=== PATIENT | female | born 1955 | race African-American/Black ===

== ENCOUNTER 2022-05-01 18:48 | Emergency (ER) | payer OTHER ==
--- OUTSIDE RECORDS SUMMARY | 2022-05-01 18:54 | XMS REPORT | Continuity of Care Document ---
:[address] [facility] t Address [address] [place] [address] Care Team Providers Name Role Phone STEPHANE IRBY Attending Clinician Unavailable Eren Attending Clinician Unavailable MAEGAN JASON Attending Clinician Unavailable JOSE CARBAJAL Attending Clinician Unavailable TASH CASTLE Attending Clinician Unavailable AMY SALEH Attending Clinician Unavailable KRISTINA PARSONS Attending Clinician Unavailable CHELO Attending Clinician Unavailable IHDE_G Attending Clinician Unavailable SHERI BROUSSARD Attending Clinician Unavailable JOSE DACOSTA Attending Clinician Unavailable ELIZABETH SANTOS Attending Clinician Unavailable JAVIER PATEL Attending Clinician Unavailable IRIS HART Attending Clinician Unavailable AZAEL DONALD Attending Clinician Unavailable TRUNG COELHO Attending Clinician Unavailable RAYO REYNOLDS Attending Clinician Unavailable TERRIE HERNDON Attending Clinician Unavailable CHRISTIAN HAYS Attending Clinician Unavailable MALCOLM RINCON Attending Clinician Unavailable DEJA GONZALES Attending Clinician Unavailable ROXANNE JOHN Attending Clinician Unavailable JULI COPPOLA Attending Clinician Unavailable BRAIN BISWAS Attending Clinician Unavailable JOEY GONZALES Attending Clinician Unavailable VICTOR HUGO BILLINGS Attending Clinician Unavailable SAUD GOODE Attending Clinician Unavailable RETA SHEEHAN Attending Clinician Unavailable RACHEL ALEX Attending Clinician Unavailable JOVITA MERINO Attending Clinician Unavailable SHUN LINK Attending Clinician Unavailable TRUNG GRAY Attending Clinician Unavailable KIMBERLY RUBIO Attending Clinician Unavailable BENTLEY STRONG Attending Clinician Unavailable BILLIE DENNIS Attending Clinician Unavailable Eren Admitting Clinician Unavailable CHELO Admitting Clinician Unavailable IHDE_G Admitting Clinician Unavailable SHUN LINK Admitting Clinician Unavailable KIMBERLY RUBIO Admitting Clinician Unavailable Payers Payer Name Policy Type Policy Number Effective Date Expiration Date Samir barroso [facility] [id number] 2017 [facility] - 00:00:00 STAR+PLUS (MEDICAID REPLACEMENT - HMO) [facility] [id number] 2017 [facility] [place] - 00:00:00 STAR PROGRAM (MEDICAID HMO) Problems Condition Condition Condition Status Onset Resolution Last Treating Co mments Source Name Details Category Date Date Treatment Clinician Date 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 2-19 da mellitus Mellitus 00:00: Medica l without without 00 Group complicati Complicati on on Hyperlipid Hyperlipid Problem Active 2016-07 [facility] emia emia 2-19 da 00:00: Medical 00 Group Essential Essential Problem Active 2016-07 [facility] hypertensi Hypertensi 2-19 da on on 00:00: Medical 00 Group Allergies, Adverse Reactions, Alerts Allergy Allergy Status Severity Reaction(s) Onset Inactive Treating Comm ents Source Name Type Date Date Clinician [place] Allergy Active 2010-07 [facility]: Medical e 00 Group [place] Allergy Active Rash [facility] to [facility] e Group Social History Smoking Status Start Date Stop Date Source Former Smoker [facility] Medications Ordered Filled Start Stop Current Ordering Indication Dosage Frequency Signature Comments Components Source Medication Medication Date Date Medication? Clinician (SIG) Name Name Aspir- No [place] one a day one a day one a day [facility] lisinopril lisinopril No lisinopril [place] 10 mg 10 mg 10 mg da tablet TAKE tablet TAKE tablet Medical ONE (1) ONE (1) TAKE ONE Group TABLET(S) TABLET(S) (1) BY MOUTH IN BY MOUTH IN TABLET(S) THE THE BY MOUTH MORNING. MORNING. IN THE MORNING. meloxicam meloxicam No meloxicam [facility] 15 mg 15 mg 15 mg da tablet TAKE tablet TAKE tablet Medical ONE (1) ONE (1) TAKE ONE Group TABLET BY TABLET BY (1) TABLET MOUTH EVERY MOUTH EVERY BY MOUTH DAY. DAY. EVERY DAY. metformin metformin No metformin [place] 500 mg 500 mg 500 mg da tablet TAKE tablet TAKE tablet Medical ONE (1) ONE (1) TAKE ONE Group TABLET(S) TABLET(S) (1) BY MOUTH BY MOUTH TABLET(S) ONCE A DAY. ONCE A DAY. BY MOUTH ONCE A DAY. metoprolol metoprolol No metoprolol [place] tartrate 50 tartrate 50 tartrate da mg tablet mg tablet 50 mg Medi nitish TAKE ONE TAKE ONE tablet Group (1) (1) TAKE ONE TABLET(S) TABLET(S) (1) BY MOUTH BY MOUTH TABLET(S) TWICE A TWICE A BY MOUTH DAY. DAY. TWICE A DAY. simvastatin simvastatin No simvastati [place] 20 mg 20 mg n 20 mg da tablet TAKE tablet TAKE tablet Medical ONE (1) ONE (1) TAKE ONE Group TABLET(S) TABLET(S) (1) BY MOUTH BY MOUTH TABLET(S) ONCE A DAY. ONCE A DAY. BY MOUTH ONCE A DAY. Voltaren Voltaren No Voltaren [facility] Arthritis Arthritis Arthritis da Pain 1 % Pain 1 % Pain 1 % Med ical topical gel topical gel topical Group APPLY 2 APPLY 2 gel APPLY GRAMS TO GRAMS TO 2 GRAMS TO THE THE THE AFFECTED AFFECTED AFFECTED AREA(S) BY AREA(S) BY AREA(S) BY TOPICAL TOPICAL TOPICAL ROUTE 4 ROUTE 4 ROUTE 4 TIMES PER TIMES PER TIMES PER DAY DAY DAY Aspir-81 Aspir-81 No Aspir-81 [place] one a day one a day one a day [facility] lisinopril lisinopril No lisinopril [place] 10 mg 10 mg 10 mg da tablet TAKE tablet TAKE tablet Medical ONE (1) ONE (1) TAKE ONE Group TABLET(S) TABLET(S) (1) BY MOUTH IN BY MOUTH IN TABLET(S) THE THE BY MOUTH MORNING. MORNING. IN THE MORNING. meloxicam meloxicam No meloxicam [facility] 15 mg 15 mg 15 mg da tablet TAKE tablet TAKE tablet Medical ONE (1) ONE (1) TAKE ONE Group TABLET BY TABLET BY (1) TABLET MOUTH EVERY MOUTH EVERY BY MOUTH DAY. DAY. EVERY DAY. metformin metformin No metformin [place] 500 mg 500 mg 500 mg da tablet TAKE tablet TAKE tablet Medical ONE (1) ONE (1) TAKE ONE Group TABLET(S) TABLET(S) (1) BY MOUTH BY MOUTH TABLET(S) ONCE A DAY. ONCE A DAY. BY MOUTH ONCE A DAY. metoprolol metoprolol No metoprolol [facility] tartrate 50 tartrate 50 tartrate da mg tablet mg tablet 50 mg Medi nitish TAKE ONE TAKE ONE tablet Group (1) (1) TAKE ONE TABLET(S) TABLET(S) (1) BY MOUTH BY MOUTH TABLET(S) TWICE A TWICE A BY MOUTH DAY. DAY. TWICE A DAY. sertraline sertraline No sertraline [place] 25 mg 25 mg 25 mg da tablet TAKE tablet TAKE tablet Medical ONE (1) ONE (1) TAKE ONE Group TABLET BY TABLET BY (1) TABLET MOUTH DAILY MOUTH DAILY BY MOUTH DAILY simvastatin simvastatin No simvastati [place] 20 mg 20 mg n 20 mg da tablet TAKE tablet TAKE tablet Medical ONE (1) ONE (1) TAKE ONE Group TABLET(S) TABLET(S) (1) BY MOUTH BY MOUTH TABLET(S) ONCE A DAY. ONCE A DAY. BY MOUTH ONCE A DAY. Immunizations Ordered Immunization Filled Immunization Date Status Commen ts Source Name Name influenza, influenza, 2018-05-09 Completed [facility] unspecified unspecified 00:00:00 Medical Grou p formulation formulation influenza, influenza, 2018-05-09 Completed [facility] unspecified unspecified 00:00:00 Medical Grou p formulation formulation pneumococcal pneumococcal 2017-06-26 Completed [facility] polysaccharide PPV23 polysaccharide PPV23 12:44:00 Medical Group pneumococcal pneumococcal 2017-06-26 Completed [facility] polysaccharide PPV23 polysaccharide PPV23 12:44:00 Medical Group influenza, influenza, 2017-06-26 Completed [facility] injectable, injectable, 12:42:00 Medical Grou p quadrivalent quadrivalent influenza, influenza, 2017-06-26 Completed [facility] injectable, injectable, 12:42:00 Medical Grou p quadrivalent quadrivalent Vital Signs Vital Name Observation Time Observation Value Comments Source BP Diastolic 2022-03-09 00:00:00 85 mm[Hg] [facility] Height 2022-03-09 00:00:00 62.1 [in_i] [facility] BMI (Body Mass 2022-03-09 00:00:00 30.8 kg/m2 [facility] Medical Index) Group BP Systolic 2022-03-09 00:00:00 148 mm[Hg] [facility] Body Weight 2022-03-09 00:00:00 2704 [oz_av] [facility] BP Diastolic 2021-10-20 00:00:00 83 mm[Hg] [facility] Height 2021-10-20 00:00:00 62.1 [in_i] [facility] BMI (Body Mass 2021-10-20 00:00:00 32.1 kg/m2 [facility] Medical Index) Group BP Systolic 2021-10-20 00:00:00 157 mm[Hg] [facility] Body Weight 2021-10-20 00:00:00 2816 [oz_av] [facility] BP Diastolic 2021-08-22 00:00:00 80 mm[Hg] [facility] Height 2021-08-22 00:00:00 62.1 [in_i] [facility] BMI (Body Mass 2021-08-22 00:00:00 32.5 kg/m2 [facility] Medical Index) Group BP Systolic 2021-08-22 00:00:00 135 mm[Hg] [facility] Body Weight 2021-08-22 00:00:00 2848 [oz_av] [facility] BP Diastolic 2021-04-19 00:00:00 86 mm[Hg] [facility] Height 2021-04-19 00:00:00 62.1 [in_i] [facility] BMI (Body Mass 2021-04-19 00:00:00 33.4 kg/m2 [facility] Medical Index) Group BP Systolic 2021-04-19 00:00:00 149 mm[Hg] [facility] Body Weight 2021-04-19 00:00:00 2928 [oz_av] [facility] BP Diastolic 2021-03-28 00:00:00 78 mm[Hg] [facility] Height 2021-03-28 00:00:00 62.5 [in_i] [facility] BMI (Body Mass 2021-03-28 00:00:00 33.2 kg/m2 [facility] Medical Index) Group BP Systolic 2021-03-28 00:00:00 137 mm[Hg] [facility] Body Weight 2021-03-28 00:00:00 2948 [oz_av] [facility] BP Diastolic 2021-02-01 00:00:00 72 mm[Hg] [facility] Height 2021-02-01 00:00:00 62.5 [in_i] [facility] BMI (Body Mass 2021-02-01 00:00:00 33.1 kg/m2 [facility] Medical Index) Group BP Systolic 2021-02-01 00:00:00 114 mm[Hg] [facility] Body Weight 2021-02-01 00:00:00 2944 [oz_av] [facility] BP Diastolic 2020-12-02 00:00:00 76 mm[Hg] [facility] Height 2020-12-02 00:00:00 62.5 [in_i] [facility] BMI (Body Mass 2020-12-02 00:00:00 32.9 kg/m2 [facility] Medical Index) Group BP Systolic 2020-12-02 00:00:00 129 mm[Hg] [facility] Body Weight 2020-12-02 00:00:00 2928 [oz_av] [facility] BP Diastolic 2020-10-13 00:00:00 78 mm[Hg] [facility] Height 2020-10-13 00:00:00 62.5 [in_i] [facility] BMI (Body Mass 2020-10-13 00:00:00 33.8 kg/m2 [facility] Medical Index) Group BP Systolic 2020-10-13 00:00:00 130 mm[Hg] [facility] Body Weight 2020-10-13 00:00:00 3008 [oz_av] [facility] BP Diastolic 2020-08-09 00:00:00 73 mm[Hg] [facility] Height 2020-08-09 00:00:00 62.5 [in_i] [facility] BMI (Body Mass 2020-08-09 00:00:00 34.4 kg/m2 [facility] Medical Index) Group BP Systolic 2020-08-09 00:00:00 117 mm[Hg] [facility] Body Weight 2020-08-09 00:00:00 3056 [oz_av] [facility] BP Diastolic 2020-07-07 00:00:00 59 mm[Hg] [facility] Height 2020-07-07 00:00:00 62.5 [in_i] [facility] BMI (Body Mass 2020-07-07 00:00:00 35.5 kg/m2 [facility] Medical Index) Group BP Systolic 2020-07-07 00:00:00 96 mm[Hg] [facility] Body Weight 2020-07-07 00:00:00 3152 [oz_av] [facility] BP Diastolic 2020-05-04 00:00:00 79 mm[Hg] [facility] Height 2020-05-04 00:00:00 62.5 [in_i] [facility] BMI (Body Mass 2020-05-04 00:00:00 35.5 kg/m2 [facility] BP Systolic 2020-05-04 00:00:00 141 mm[Hg] [facility] Body Weight 2020-05-04 00:00:00 3152 [oz_av] [facility] BP Diastolic 2020-04-07 00:00:00 68 mm[Hg] [facility] Height 2020-04-07 00:00:00 62.5 [in_i] [facility] BMI (Body Mass 2020-04-07 00:00:00 35.6 kg/m2 [facility] Group BP Systolic 2020-04-07 00:00:00 128 mm[Hg] [facility] Body Weight 2020-04-07 00:00:00 3168 [oz_av] [facility] BP Diastolic 2019-12-23 00:00:00 81 mm[Hg] [facility] Height 2019-12-23 00:00:00 62.5 [in_i] [facility] BMI (Body Mass 2019-12-23 00:00:00 [facility] BP Systolic 2019-12-23 00:00:00 152 mm[Hg] [facility] Body Weight 2019-12-23 00:00:00 3184 [oz_av] [facility] BP Diastolic 2019-09-09 00:00:00 61 mm[Hg] [facility] Height 2019-09-09 00:00:00 62.5 [in_i] [facility] BMI (Body Mass 2019-09-09 00:00:00 33[facility]8 [facility] BP Systolic 2019-09-09 00:00:00 116 mm[Hg] [facility] Body Weight 2019-09-09 00:00:00 188 [lb_av] [facility] BP Diastolic 2019-09-02 00:00:00 74 mm[Hg] [facility] Height 2019-09-02 00:00:00 62.5 [in_i] [facility] BMI (Body Mass 2019-09-02 00:00:00 33.8 kg/m2 [facility] BP Systolic 2019-09-02 00:00:00 112 mm[Hg] [facility] Body Weight 2019-09-02 00:00:00 188 [lb_av] [facility] BP Diastolic 2019-08-07 00:00:00 76 mm[Hg] [facility] Height 2019-08-07 00:00:00 62.5 [in_i] [facility] BMI (Body Mass 2019-08-07 00:00:00 33.8 kg/m2 [facility] BP Systolic 2019-08-07 00:00:00 110 mm[Hg] [facility] Body Weight 2019-08-07 00:00:00 188 [lb_av] [facility] BP Diastolic 2019-07-23 00:00:00 71 mm[Hg] [facility] Height 2019-07-23 00:00:00 62.5 [in_i] [facility] BMI (Body Mass 2019-07-23 00:00:00 33.8 kg/m2 [facility] BP Systolic 2019-07-23 00:00:00 107 mm[Hg] [facility] Body Weight 2019-07-23 00:00:00 3008 [oz_av] [facility] BP Diastolic 2019-06-02 00:00:00 74 mm[Hg] [facility] Height 2019-06-02 00:00:00 62.5 [in_i] [facility] BMI (Body Mass 2019-06-02 00:00:00 33.8 kg/m2 [facility] BP Systolic 2019-06-02 00:00:00 124 mm[Hg] [facility] Body Weight 2019-06-02 00:00:00 3008 [oz_av] [facility] BP Diastolic 2019-03-18 00:00:00 151 mm[Hg] [facility] Height 2019-03-18 00:00:00 62.5 [in_i] [facility] BMI (Body Mass 2019-03-18 00:00:00 33.9 kg/m2 [facility] BP Systolic 2019-03-18 00:00:00 168 mm[Hg] [facility] Body Weight 2019-03-18 00:00:00 3012 [oz_av] [facility] BP Diastolic 2019-01-07 00:00:00 77 mm[Hg] [facility] Height 2019-01-07 00:00:00 62.5 [in_i] [facility] BMI (Body Mass 2019-01-07 00:00:00 34.6 kg/m2 [facility] Medical Index) Group BP Systolic 2019-01-07 00:00:00 128 mm[Hg] [facility] Body Weight 2019-01-07 00:00:00 3072 [oz_av] [facility] BP Diastolic 2018-12-17 00:00:00 74 mm[Hg] [facility] Height 2018-12-17 00:00:00 62.5 [in_i] [facility] BMI (Body Mass 2018-12-17 00:00:00 34.9 kg/m2 [facility] Medical Index) Group BP Systolic 2018-12-17 00:00:00 116 mm[Hg] [facility] Body Weight 2018-12-17 00:00:00 3104 [oz_av] [facility] BP Diastolic 2018-10-31 00:00:00 79 mm[Hg] [facility] Height 2018-10-31 00:00:00 62.5 [in_i] [facility] BMI (Body Mass 2018-10-31 00:00:00 34.6 kg/m2 [facility] Medical Index) Group BP Systolic 2018-10-31 00:00:00 137 mm[Hg] [facility] Body Weight 2018-10-31 00:00:00 3072 [oz_av] [facility] BP Diastolic 2018-09-23 00:00:00 64 mm[Hg] [facility] Height 2018-09-23 00:00:00 62.5 [in_i] [facility] BMI (Body Mass 2018-09-23 00:00:00 36 kg/m2 [facility] BP Systolic 2018-09-23 00:00:00 109 mm[Hg] [facility] Body Weight 2018-09-23 00:00:00 3201.6 [oz_av] [facility] BP Diastolic 2018-06-27 00:00:00 62 mm[Hg] [facility] Height 2018-06-27 00:00:00 62.5 [in_i] [facility] BMI (Body Mass 2018-06-27 00:00:00 36.2 kg/m2 [facility] BP Systolic 2018-06-27 00:00:00 94 mm[Hg] [facility] Body Weight 2018-06-27 00:00:00 3216 [oz_av] [facility] Procedures Procedure Date / Time Performing Clinician Source Performed MAMMO, screening, digital, 2022-03-09 [facility] 2022-03-09 00:00:00 [facility] MAMMO, screening, digital, 2021-04-19 [facility] imaging order 2021-03-28 00:00:00 [facility] unlisted imaging order 2021-02-01 00:00:00 [facility] unlisted imaging order 2020-10-13 00:00:00 [facility] MAMMO, screening, digital, 2020-07-07 00:00:00 [facility] 2019[facility], screening, digital, 2019-07-23 00:00:00 [facility] unlisted imaging order 2018-12-17 00:00:00 [facility] Colonoscopy 2017-09-06 00:00:00 [facility] Hyste[facility] Cholecystectomy [facility] Plan of Care Planned Activity Planned Date Details Comments Source Diagnostic Test 2022-03-09 CBC w/ auto diff [facility] Pending 00:00:00 [code = CBC w/ auto Group diff] Diagnostic Test 2022-03-09 CMP, serum or [facility] Pending 00:00:00 plasma [code = CMP, Group serum or plasma] Diagnostic Test 2022-03-09 lipid panel, serum [facility] Pending 00:00:00 [code = lipid Group panel, serum] Diagnostic Test 2022-03-09 HbA1c (hemoglobin [facility] Pending 00:00:00 A1c), blood [code = Group HbA1c (hemoglobin A1c), blood] Diagnostic Test 2022-03-09 hepatitis C virus [facility] Pending 00:00:00 Ab, serum [code = Group hepatitis C virus Ab, serum] Diagnostic Test 2022-03-09 TSH, serum or [facility] Pending 00:00:00 plasma [code = TSH, Group serum or plasma] Diagnostic Test 2022-03-09 urinalysis [facility] Pending 00:00:00 complete, reflex Group culture [code = urinalysis complete, reflex culture] Instructions [facility] Encounters Start End Encounter Admission Attending Care Care Encounter Source Date/Time Date/Time Type Type Clinicians Facility Department ID 2022-04-22 2022-04-22 Emergency ER IRBY, [facility] [id number] [facility] 12:33:00 14:35:00 STEPHANE -[id number] [facility] 2022-04-21 2022-04-21 Outpatient Shield [facility] [id number] [place] 00:00:00 00:00:00 1014 [facility] 2022-03-09 2022-03-09 Outpatient EREN, [facility] [id number] [place] 10:52:00 10:52:00 MAEGAN -[id number] [facility] 2022-03-09 2022-03-09 [facility] [id number] [facility] 00:00:00 00:00:00 0901 [facility] 2022-03-09 2022-03-09 Maegan [facility] [place] - [id number] [facility] 00:00:00 00:00:00 Discovery crys Jason NIGHTCLUB MANAGER: [address] [facility] [place] - [address], [place] [address] , Ph. 2022-02-26 2022-02-27 Emergency ER CATANESCU, [facility] [id number] [place] 21:29:00 00:26:00 JOSE -[id number] [facility] 2021-10-20 2021-10-20 Outpatient RYLEE JASON, [facility] [id number] [place] 09:38:00 09:38:00 MAEGAN -[id number] [facility] 2021-10-20 2021-10-20 Maegan Eren [facility] [place] - [address] [facility] 00:00:00 00:00:00 Discovery Eren 0414 da NIGHTCLUB MANAGER: [address] [place], [place] [address]rda - [address], [place] [address] , Ph. 2021-08-22 2021-08-22 Maegan Jason [facility] [place] - [address] [facility] 00:00:00 00:00:00 Discovery Eren 0214 da NIGHTCLUB MANAGER: [address] [place] [address] [facility] - [address], [place] [address] , Ph. 2021-04-22 2021-04-22 Outpatient [facility] [id number] [place] 04:37:00 04:37:00 1015 da [facility] 2021-04-19 2021-04-19 Outpatient RYLEE JASON, [facility] [id number] [place] 11:46:00 11:46:00 MAEGAN -[id number] [facility] 2021-04-19 2021-04-19 Maegantiffany Jason [facility] [place] - [address] [facility] 00:00:00 00:00:00 Discovery Eren 1012 da NIGHTCLUB MANAGER: [address] [place], [place] [address] - [address], [facility] [place] [address] , Ph. 2021-03-28 2021-03-28 Outpatient RYLEE JASON [facility] [id number] [place] 11:54:00 11:54:00 MAEGAN -[id number] [facility] 2021-03-28 2021-03-28 Maegan Jason [facility] [place] [place] - [id number] [place] 00:00:00 00:00:00 Discovery Eren 0920 da NIGHTCLUB MANAGER: [address] [facility] [place] - [address], [place] [address] , Ph. 2021-02-01 2021-02-01 Outpatient RYLEE JASON [facility] [id number] [place] 09:40:00 09:40:00 MAEGAN -[id number] da [facility] 2021-02-01 2021-02-01 Maegan Jason [facility] [place] [place] - [address] [place] 00:00:00 00:00:00 Discovery Eren 0727 da NIGHTCLUB MANAGER: [address] [place] [address] [place] - [address], [place] [address] , Ph. 2020-12-02 2020-12-02 Maegan Jason [facility] [place] - [address] [facility] 00:00:00 00:00:00 Discovery Eren 0527 da NIGHTCLUB MANAGER: [address] [place] [address] [place] - [address], [facility] [place] [address] , Ph. 2020-10-25 2020-10-25 Outpatient RYLEE JASON [facility] [id number] [place] 14:04:00 14:04:00 MAEGAN -[id number] da [facility] 2020-10-22 2020-10-22 Outpatient Eren [facility] [id number] [place] 09:07:00 09:07:00 0416 crys [facility] 2020-10-13 2020-10-13 Outpatient RYLEE JASON [facility] [id number] [place] 10:34:00 10:34:00 MAEGAN -[id number] da [facility] 2020-10-13 2020-10-13 Maegan Jason [facility] [place] - [address] [place] 00:00:00 00:00:00 Discovery Eren 0407 da NIGHTCLUB MANAGER: [address] [place] [address] [place] - [address], [facility] [place] [address] , Ph. 2020-08-09 2020-08-09 Maegan Shield [place] [place] - [id number] [place] 00:00:00 00:00:00 Discovery Eren 0201 da NIGHTCLUB MANAGER: [address] [facility] [place] - [address], [facility], [place] [address] , Ph. 2020-07-07 2020-07-07 Outpatient EL EREN, [facility] [id number] [place] 12:14:00 12:14:00 MAEGAN -[id number] da [facility] 2020-07-07 2020-07-07 Maegan [place] - [address] [place] 00:00:00 00:00:00 Discovery Eren 1230 da NIGHTCLUB MANAGER: [address] [facility] [place] - [address], [place] [address] , Ph. 2020-07-04 2020-07-04 Emergency ER [facility], [facility] [id number] [place] 11:00:00 11:50:00 TASH -[id number] da [facility] 2020-05-26 2020-05-26 Outpatient Shield MMG MMG [id number] [place] 02:23:00 02:23:00 1118 [facility] 2020-05-18 2020-05-18 Outpatient Shield MMG MMG [id number] [place] 05:48:00 05:48:00 1110 [facility] 2020-05-04 2020-05-04 Maegan [place] - [id number] [place] 00:00:00 00:00:00 Discovery Eren 1027 da NIGHTCLUB MANAGER: [address] [facility] [place] - [address], [facility] [address] , Ph. 2020-04-18 2020-04-18 Emergency ER IRUKE, [facility] [id number] [place] 09:27:00 12:20:00 AMY -[id number] d a [facility] 2020-04-07 2020-04-07 Maegan Shield [place] - [address] [place] 00:00:00 00:00:00 ErenDiscovery 0930 da NIGHTCLUB MANAGER: [address] [facility] [place] [place] - [address], [facility], [facility] [place] [address] , Ph. 2020-03-18 2020-03-18 Emergency ER KRISTINA PARSONS [facility] [id number] [place] 08:03:00 10:19:00 -[id number] [facility] 2020-02-02 2020-02-02 Outpatient FERGUSON_JO MEHOP MEHOP 701 [place] 11:25:00 11:25:00 HN 0331 [facility] 2020-02-02 2020-02-02 Outpatient FERGUSON_JO MEHOP MEHOP 701 [place] 11:25:00 11:25:00 HN 0727 [facility] 2020-01-16 2020-01-16 Outpatient FERGUSON_JO MEHOP MEHOP 701 [place] 10:52:00 10:52:00 HN 0710 [facility] 2020-01-15 2020-01-15 Outpatient FERGUSON_JO MEHOP MEHOP 701 [place] 11:29:00 11:29:00 HN 0709 [facility] 2020-01-12 2020-01-12 Outpatient FERGUSON_JO MEHOP MEHOP 701 [place] 10:43:00 10:43:00 HN 0706 [facility] 2019-12-26 2019-12-26 Outpatient Shield [facility] [id number] [place] 11:25:00 11:25:00 0619 [facility] 2019-12-24 2019-12-24 Outpatient FERGUSON_JO MEHOP MEHOP 701 [place] 12:31:00 12:31:00 HN 0617 [facility] 2019-12-23 2019-12-23 Outpatient RYLEE JASON, [facility] [id number] [place] 13:49:00 13:49:00 MAEGAN -[id number] [facility] 2019-12-23 2019-12-23 Ma[place] I[place] - [phone] [place] 00:00:00 00:00:00 Discovery Eren 0616 da NIGHTCLUB MANAGER: [address] [facility] [address], [place] [address] , Ph. 2019-12-22 2019-12-22 Outpatient IHDE_G MMG MMG [id number] [place] 04:18:00 04:18:00 0615 [facility] 2019-12-17 2019-12-17 Outpatient FERGUSON_JO MEHOP MEHOP 701 [place] 02:41:00 02:41:00 HN 0610 [facility] 2019-12-16 2019-12-16 Outpatient FERGUSON_JO MEHOP MEHOP 701 [place] 09:08:00 09:08:00 HN 0609 [facility] 2019-12-15 2019-12-15 Outpatient FERGUSON_JO MEHOP MEHOP 701 [place] 03:26:00 03:26:00 HN 0608 [facility] 2019-10-01 2019-10-01 Outpatient IHDE_G MMG MMG [id number] [place] 02:59:00 02:59:00 0325 [facility] 2019-09-09 2019-09-09 [place] [address] [place] 00:00:00 00:00:00 Deja Chan 0303 crys Broussard MD: Jorge Alberto Medica shyanne [address] [place] [address] General [address], [place] [address] , Ph. [phone] 2019-09-03 2019-09-03 Outpatient IHDE_G MMG MMG [id number] [place] 02:53:00 02:53:00 0226 [facility] 2019-09-02 2019-09-02 Outpatient UR IHDE, SHERI [facility] [id number] [place] 10:39:00 10:39:00 -[id number] [facility] 2019-09-02 2019-09-02 [place]HDE_[place] - [id number] [place] 00:00:00 00:00:00 Deja Chan 0225 crys Broussard MD: Jorge Alberto kimble [address] [place] [address] 201, [place] [address] , Ph. [phone] 2019-08-27 2019-08-27 Outpatient SHERI GOMEZ [facility] [id number] [place] 09:00:00 09:00:00 -[id number] [facility] 2019-08-07 2019-08-07 She[place] IHDE_[place] - [id number] [place] 00:00:00 00:00:00 Deja Chan 0130 crys Broussard MD: Jorge Alberto Suttona shyanne [address] [place] [address] 201, [place] [address] , Ph. [phone] 2019-07-24 2019-07-24 [place] [id number] [place] 06:49:00 06:49:00 0116 [facility] 2019-07-23 2019-07-23 [place]egan [place] - [id number] [place] 00:00:00 00:00:00 Discovery Eren 0115 da NIGHTCLUB MANAGER: [address] [place] [address] [place] [address] , Ph. 2019-06-13 2019-06-13 Outpatient Shield MMG MMG [id number] [place] 12:17:00 12:17:00 1206 crys [facility] 2019-06-02 2019-06-02 [place] - [id number] [place] 00:00:00 00:00:00 Discovery Eren 1125 da NIGHTCLUB MANAGER: [address] [place] [address] [place] [address] , Ph. 2019-05-30 2019-05-30 Emergency ER GIANNONFredy, [facility] [id number] [place] 08:28:00 09:35:00 JOSE [id number] [facility] 2019-03-18 2019-03-18 Outpatient EL EREN, [facility] [id number] [place] 11:27:00 11:27:00 MAEGAN -[id number] crys [facility] 2019-03-18 2019-03-18 [place] - [id number] [place] 00:00:00 00:00:00 Discovery Eren 0910 da NIGHTCLUB MANAGER: [address] [facility] [place] [address], [place] [address] , Ph. 2019-01-07 2019-01-07 [place] - [address] [place] 00:00:00 00:00:00 Discovery Eren 0702 da NIGHTCLUB MANAGER: [address] [place] [address], [place] [address], [place] [address] , Ph. 2018-12-19 2018-12-19 Emergency ER TOM, [facility] [id number] [place] 20:51:00 22:26:00 ELIZABETH [id number] crys [facility] 2018-12-17 2018-12-17 [place] - [id number] [place] 00:00:00 00:00:00 Discovery Eren 0611 da NIGHTCLUB MANAGER: [address] [place] [address], [place] [address], [place] [address] , Ph. 2018-10-31 2018-10-31 [place] - [id number] [place] 00:00:00 00:00:00 Discovery Eren 0425 da NIGHTCLUB MANAGER: [address] [place] [address], [place] - [address], [place] [address] , Ph. 2018-10-30 2018-10-30 Emergency ER GIANNONFredy, [facility] [id number] [place] 08:23:00 10:08:00 JOSE -[id number] da [facility] 2018-09-30 2018-09-30 Emergency ER IRUKE, [facility] [id number] [place] 13:08:00 17:45:[address] [id number] d a [facility] 2018-09-23 2018-09-23 [place] MIGUEL ÁNGEL [place] - [address] [place] 00:00:00 00:00:00 Discovery Eren 0318 da NIGHTCLUB MANAGER: [address] [facility] [place] - [address], [facility] [place] [address] , Ph. 2018-09-15 2018-09-16 Emergency ER PATEL, [facility] [id number] [place] 23:48:00 01:39:00 [facility] -[id number] da [facility] 2018-06-27 2018-06-27 [place] - [address] [place] 00:00:00 00:00:00 Discovery Eren 1220 da NIGHTCLUB MANAGER: [address] [facility] [place] - [address], [facility], [place] [address] , Ph. 2018-06-22 2018-06-22 Emergency ER OWO, TOKS [facility] [id number] [place] 12:17:00 16:09:00 -[id number] da [facility] 2018-06-18 2018-06-18 Outpatient RYLEE EREN [facility] [id number] [place] 12:23:00 12:23:00 MAEGAN -[id number] da [facility] 2018-06-18 2018-06-18 [place] - [address] [place] 00:00:00 00:00:00 Discovery Eren 1211 da NIGHTCLUB MANAGER: [address] [facility] [address], [facility], [place] [address] , Ph. 2018-02-28 2018-02-28 Outpatient RYLEE EREN [facility] [id number] [place] 08:09:00 08:09:00 MAEGAN -[id number] da [facility] 2018-01-19 2018-01-19 Emergency ER UGORJI, [facility] [id number] 60 [place] 10:31:00 13:12:00 CLEMENT -[id number] da [facility] 2017-12-05 2017-12-05 Emergency TR HAILEY, [facility] [id number] 60 [place] 12:17:00 14:22:00 IRIS -[id number] [facility] 2017-09-30 2017-10-01 Emergency ER DONALD, [facility] [id number] [place] 22:09:00 01:15:00 AZAEL -[id number] [facility] 2017-09-20 2017-09-20 Outpatient EL MELITON, [facility] [id number] [place] 09:26:00 09:26:00 TRUNG -[id number] [facility] 2017-09-03 2017-09-03 Emergency ER OWO, TOKS [facility] [id number] [place] 12:14:00 16:18:00 -[id number] [facility] 2017-06-26 2017-06-26 Outpatient EL MELITON, [facility] [id number] [place] 11:58:00 11:58:00 TRUNG -[id number] [facility] 2017-05-20 2017-05-20 Emergency ER OLESYA, [facility] [id number] [place] 05:13:00 08:56:00 JOSE -[id number] [facility] 2017-04-30 2017-04-30 Outpatient EL D'MORENO, [facility] [id number] [place] 08:03:00 08:03:00 RAYO -[id number] [facility] 2017-02-21 2017-02-21 Emergency ER DONALD, [facility] [id number] [place] 17:00:00 19:19:00 AZAEL -[id number] [facility] 2017-01-31 2017-01-31 Outpatient EL AMBEAUX, [facility] [id number] [place] 09:38:00 09:38:00 TERRIE -[id number] [facility] 2016-12-06 2016-12-06 Outpatient EL AMBEAUX, [facility] [id number] [place] 09:01:00 09:01:00 TERRIE -[id number] [facility] 2016-10-31 2016-10-31 Outpatient EL AMBEAUX, [facility] [id number] [place] 08:31:00 08:31:00 TERRIE -[id number] [facility] 2016-10-30 2016-10-31 Emergency ER OWIsabella, [facility]KS [facility] [id number] [place] 17:48:00 00:04:00 -[id number] [facility] 2016-05-31 2016-05-31 Outpatient EL AMBEAUX, [facility] [id number] [place] 09:10:00 09:10:00 TERRIE -[id number] [facility] 2016-05-09 2016-05-09 Emergency ER TOM, [facility] [id number] [place] 08:10:00 10:46:00 ELIZABETH [id number] [facility] 2016-03-17 2016-03-17 Outpatient EL AMBEAUX, [facility] [id number] [place] 10:51:00 10:51:00 TERRIE -[id number] [facility] 2016-02-09 2016-02-09 Outpatient RYLEE HAYS, [facility] [id number] [place] 07:01:00 07:01:00 CHRISTIAN -[id number] [facility] 2015-08-24 2015-08-24 Emergency ER MALCOLM RINCON [facility] [id number] [place] 12:24:00 16:12:00 -[id number] [facility] 2015-08-16 2015-08-16 Emergency ER OWO, TOKS [facility] [id number] [place] 14:52:00 21:10:00 -[id number] [facility] 2015-05-14 2015-05-14 Outpatient EL AMBEAUX, [facility] [id number] [place] 09:59:00 09:59:00 TERRIE -[id number] [facility] 2015-04-02 2015-04-02 Outpatient EL AMBEAUX, [facility] [id number] [place] 09:22:00 09:22:00 TERRIE [id number] [facility] 2015-02-26 2015-02-26 Outpatient EL AMBEAUX, [facility] [id number] [place] 10:02:00 10:02:00 TERRIE -[id number] [facility] 2015-01-06 2015-01-06 Outpatient EL AMBEAUX, [facility] [id number] [place] 10:18:00 10:18:00 TERRIE -[id number] [facility] 2014-11-26 2014-11-26 Outpatient EL PEGGS, [facility] [id number] [place] 09:13:00 09:13:00 DEJA -[id number] [facility] 2014-09-29 2014-09-29 Outpatient EL AMBEAUX, [facility] [id number] [place] 08:16:00 08:16:00 TERRIE [id number] [facility] 2014-09-03 2014-09-03 Outpatient EL PEGGS, [facility] [id number] [place] 05:58:00 05:58:00 DEJA [id number] [facility] 2014-04-17 2014-04-17 Outpatient EL AMBEAUX, [facility] [id number] [place] 08:14:00 08:14:00 TERRIE [id number] [facility] 2013-10-21 2013-10-21 Outpatient EL AMBEAUX, [facility] [id number] [place] 08:03:00 08:03:00 TERRIE -[id number] [facility] 2013-09-01 2013-09-01 Outpatient EL DORA, [facility] [id number] [place] 05:03:00 05:03:00 ROXANNE -[id number] [facility] 2013-08-25 2013-08-25 Outpatient EL AMBEAUX, [facility] [id number] [place] 10:22:00 10:22:00 TERRIE [id number] [facility] 2013-07-24 2013-07-24 Outpatient EL AMBEAUX, [facility] [id number] [place] 08:59:00 08:59:00 TERRIE [id number] [facility] 2013-04-21 2013-04-21 Emergency ER UGORJI, [facility] [id number] [place] 09:04:00 11:13:00 IRIS -[id number] [facility] 2013-03-13 2013-03-13 Outpatient EL AMBEAUX, [facility] [id number] [place] 08:46:00 08:46:00 TERRIE -[id number] [facility] 2013-01-29 2013-01-29 Outpatient EL AMBEAUX, [facility] [id number] [place] 10:36:00 10:36:00 TERRIE -[id number] [facility] 2013-01-21 2013-01-21 Outpatient EL AMBEAUX, [facility] [id number] [place] 10:18:00 10:18:00 TERRIE -[id number] [facility] 2012-12-29 2012-12-29 Emergency ER COPPOLA, [facility] [id number] [place] 11:08:00 12:17:00 JULI -[id number] [facility] 2012-07-28 2012-07-28 Emergency ER COPPOLA, [facility] [id number] [place] 12:09:00 13:33:00 JULI -[id number] [facility] 2011-12-26 2011-12-26 Outpatient EL AMBEAUX, [facility] [id number] [place] 12:23:00 12:23:00 TERRIE -[id number] [facility] 2011-12-18 2011-12-18 Emergency ER OTINWA, [facility] [id number] [place] 09:42:00 11:40:00 BRAIN -[id number] [facility] 2011-10-18 2011-10-18 Emergency ER VAN DELDEN, [facility] [id number] [place] 21:11:00 23:50:00 JOEY -[id number] [facility] 2011-09-29 2011-09-29 Outpatient EL AMBEAUX, [facility] [id number] [place] 08:00:00 08:00:00 TERRIE -[id number] [facility] 2011-08-08 2011-08-08 Emergency ER AWA, [facility] [id number] [place] 04:12:00 06:41:00 VICTOR HUGO -[id number] [facility] 2011-06-11 2011-06-11 Emergency ER OTINWA, [facility] [id number] 60 [place] 15:17:00 21:10:00 BRAIN -[id number] [facility] 2011-02-28 2011-02-28 Outpatient EL AMBEAUX, [facility] [id number] [place] 07:59:00 07:59:00 TERRIE -[id number] [facility] 2010-11-02 2010-11-02 Emergency ER IMMARAJ, [facility] [id number] [place] 15:27:00 18:09:00 RICHARDRAFAEL -[id number] d [facility] 2010-05-24 2010-05-24 Outpatient EL AMBEAUX, [facility] [id number] [place] 12:08:00 12:08:00 TERRIE -[id number] [facility] 2009-12-13 2009-12-14 Emergency ER COPPOLA, [facility] [id number] [place] 23:13:00 00:52:00 WAS -[id number] [facility] 2009-04-13 2009-04-13 Outpatient EL AMBEAUX, [facility] [id number] [place] 16:12:00 16:12:00 TERRIE -[id number] [facility] 2008-12-11 2008-12-11 Emergency ER IMMARAJ, [facility] [id number] [place] 14:09:00 18:37:00 RICHARDRAFAEL -[id number] d [facility] 2008-08-16 2008-08-16 Emergency ER AGUILA, [facility] [id number] [place] 14:48:00 16:10:00 RETA -[id number] [facility] 2008-07-19 2008-07-19 Emergency ER AGUILA, [facility] [id number] [place] 12:32:00 13:50:00 RETA -[id number] [facility] 2008-03-23 2008-03-23 Outpatient EL AMBEAUX, [facility] [id number] [place] 08:06:00 08:06:00 TERRIE -[id number] [facility] 2007-09-12 2007-09-12 Outpatient EL AMBEAUX, [facility] [id number] [place] 07:50:00 07:50:00 TERRIE -[id number] [facility] 2007-06-10 2007-06-10 Outpatient EL AMBEAUX, [facility] [id number] [place] 14:30:00 14:30:00 TERRIE -[id number] [facility] 2006-12-28 2006-12-28 Emergency ER ABI, [facility] [id number] [place] 10:33:00 12:25:00 RACHEL -[id number] [facility] 2006-10-21 2006-10-21 Emergency ER IMMARAJ, [facility] [id number] [place] 14:19:00 17:55:00 SAUD -[id number] nic [facility] 2006-08-03 2006-08-03 Emergency [facility] [id number] [place] 12:01:00 14:00:00 SAIDA, -[id number] [facility] 2006-05-07 2006-05-10 Inpatient SHUN GARVIN [facility] MSUR [id number] [place] 05:00:00 09:55:00 -[id number] [facility] 2006-03-06 2006-03-07 Inpatient ER SHUN LINK [facility] MED [id number] [place] 12:55:00 09:15:00 -[id number] [facility] 2006-01-16 2006-01-16 Emergency ER ABI, [facility] [id number] [place] 13:38:00 16:25:00 RACHEL -[id number] [facility] 2005-12-08 2005-12-08 Emergency ER UGORDAVID, [facility] [id number] [place] 20:13:00 22:55:00 IRIS -[id number] [facility] 2005-11-09 2005-11-09 Outpatient EL ISAAC, [facility] [id number] [place] 09:55:00 09:55:00 TRUNG -[id number] [facility] 2005-10-09 2005-10-09 Outpatient EL ISAAC, [facility] [id number] [place] 10:37:00 10:37:00 TRUNG -[id number] [facility] 2005-07-30 2005-07-31 Inpatient ER RAMIRO, [facility] [id number] [place] 00:13:00 11:40:00 KIMBERLY -[id number] [facility] 2005-05-21 2005-05-21 Emergency ER TAE BENTLEY [facility] [id number] [place] 20:00:00 21:15:00 -[id number] [facility] 2005-03-02 2005-03-02 Emergency ER JEANNIE, [facility] [id number] [place] 09:45:00 11:25:00 BILLIE -[id number] [facility] 2004-05-17 2004-05-17 Emergency ER UGORDAVID, [facility] [id number] 60 [place] 14:01:00 18:35:00 CLEVALERY -[id number] [facility] 2002-01-02 2002-01-02 Emergency ER UGORDAVID, [facility] [id number] [place] 13:30:00 22:00:00 CLEMENT -[id number] [facility] 2000-02-02 2000-02-02 Emergency ER UGORDAVID, [facility] [id number] [place] 17:20:00 19:30:00 CLEMENT -[id number] [facility] 1998-05-27 1998-05-27 Emergency ER TOM, [facility] [id number] [place] 21:08:00 23:35:00 ELIZABETH -[id number] [facility] Results Test Description Test Time Test Comments Results Result Comments Source hepatitis C virus antibody 2022-03-10 08:15:00 Test Item Value Reference Range Interpretation Comme nts hepatitis C virus antibody (test code = hepatitis C virus an tibody) < 0.1 0.0-0.9 [facility] [id number] 14:47:00 Test Item Value Reference Range Interpretation Comments thyroid stimulating hormone L 1.11 uIU/mL 0.36-3.74 (test code = thyroid stimulating hormone L) [facility] - Serum or Plasma 2022-03-09 14:29:00 Test Item Value Reference Range Interpretation Comments glucose (test code = glucose) 101 mg/dL 82-115 blood urea nitrogen (test code = 24 mg/dL 8-23 H blood urea nitrogen) osmolality calculated,serum (test 278 mOsm/kg 280-300 L code = osmolality calculated,serum) creatinine (test code = 0.71 mg/dL 0.50-0.90 creatinine) glomerular filtration rate (test > 60.00 code = glomerular filtration rate) BUN/creatinine ratio (test code = 33.8 12.0-20.0 H BUN/creatinine ratio) sodium level (test code = sodium 137 mmol/L 135-145 level) potassium level (test code = 4.4 mmol/L 3.5-5.2 potassium level) chloride level (test code = 103 mmol/L 98-108 chloride level) CO2 (test code = CO2) 30 mmol/L 21-32 anion gap (test code = anion gap) 8.4 mEq/L 12.0-20.0 L calcium level (test code = 10.0 mg/dL 8.8-10.2 calcium level) total protein (test code = total 7.5 g/dL 6.6-8.7 protein) albumin (test code = albumin) 4.3 g/dL 3.5-5.2 globulin (test code = globulin) 3.2 g/dL 1.5-4.5 A/G ratio (test code = A/G ratio) 1.3 >1.0 bilirubin,total (test code = 0.5 mg/dL 0.0-1.2 bilirubin,total) AST/SGOT (test code = AST/SGOT) 20 U/L 15-32 ALT/SGPT (test code = ALT/SGPT) 22 U/L 0-33 alkaline phosphatase, total (test 98 U/L 35-105 code = alkaline phosphatase, total) [facility] [id number] 14:29:00 Test Item Value Reference Range Interpretation Comments cholesterol level (test code = 173 mg/dL 150-200 cholesterol level) triglycerides level (test code = 42 mg/dL <150 triglycerides level) HDL cholesterol (test code = HDL 67 mg/dL >65 cholesterol) Cholesterol in LDL [Mass/volume] in 96 mg/dL <100 Serum or Plasma (test code = 2089-1) cholesterol risk ratio (test code = 2.582 cholesterol risk ratio) [facility] [id number] 14:29:00 Test Item Value Reference Range Interpretation Comments cholesterol level (test code = 173 mg/dL 150-200 cholesterol level) triglycerides level (test code = 42 mg/dL <150 triglycerides level) HDL cholesterol (test code = HDL 67 mg/dL >65 cholesterol) Cholesterol in LDL [Mass/volume] in 96 mg/dL <100 Serum or Plasma (test code = 2089-1) cholesterol risk ratio (test code = 2.582 cholesterol risk ratio) [facility] [id number] 14:28:00 Test Item Value Reference Range Interpretation Comments Hemoglobin A1c/Hemoglobin.total in 6.1 % 4.0-6.0 H Blood (test code = 4548-4) [id number] 14:17:00 Test Item Value Reference Range Interpretation Comments color, urine (test code = color, light yellow urine) appearance, urine (test code = clear clear appearance, urine) urine glucose (test code = urine negative negative glucose) bilirubin, urine (test code = negative negative bilirubin, urine) ketone, urine (test code = negative negative ketone, urine) specific gravity,urine (test 1.023 1.003-1.030 code = specific gravity,urine) blood urine (test code = blood negative negative urine) pH,urine (test code = pH,urine) 5.000 5-9 protein urine (UA) (test code = negative negative protein urine (UA)) urobilinogen, urine (test code = normal 0.2-1.0 urobilinogen, urine) nitrate, urine (test code = negative negative nitrate, urine) urine leukocyte esterase (test negative negative code = urine leukocyte esterase) [id number] 14:17:00 Test Item Value Reference Range Interpretation Comments color, urine (test code = color, light yellow urine) appearance, urine (test code = clear clear appearance, urine) urine glucose (test code = urine negative negative glucose) bilirubin, urine (test code = negative negative bilirubin, urine) ketone, urine (test code = negative negative ketone, urine) specific gravity,urine (test 1.023 1.003-1.030 code = specific gravity,urine) blood urine (test code = blood negative negative urine) pH,urine (test code = pH,urine) 5.000 5-9 protein urine (UA) (test code = negative negative protein urine (UA)) urobilinogen, urine (test code = normal 0.2-1.0 urobilinogen, urine) nitrate, urine (test code = negative negative nitrate, urine) urine leukocyte esterase (test negative negative code = urine leukocyte esterase) RBC, urine (test code = RBC, <1 0-5 urine) WBC, urine (test code = WBC, <1 0-5 urine) epithelial cell (test code = 1-5 0-5 epithelial cell) bacteria, urine (test code = small(1+) none detect bacteria, urine) casts,urine (test code = 2-5 none detect casts,urine) urine culture added? (test code no = urine culture added?) [facility] W Auto Differential panel - [id number] 00:00:00 Test Item Value Reference Range Interpretation Comments white blood count (test code = 5.8 K/uL 4.0-11.5 white blood count) red blood count (test code = red 4.83 M/uL 3.80-5.20 blood count) hemoglobin (test code = 13.7 g/dL 10.5-15.7 hemoglobin) hematocrit (test code = 43.5 % 34.0-50.0 hematocrit) mean corpuscular volume (test code 90.1 fL 86.0-100.0 = mean corpuscular volume) mean corpuscular hemoglobin (test 28.4 pg 26.2-33.4 code = mean corpuscular hemoglobin) mean corpuscular HGB conc (test 31.5 g/dL 30.0-34.0 code = mean corpuscular HGB conc) red cell distribution width (test 14.6 % 12.0-15.5 code = red cell distribution width) platelet count (test code = 338 K/uL 165-450 platelet count) mean platelet volume (test code = 10.2 fL 9.4-12.6 mean platelet volume) neutrophils % (test code = 53.4 % 44.4-80.1 neutrophils %) Ig% (test code = Ig%) 0.2 % 0.0-0.4 lymphocyte% (test code = 35.7 % 10.0-50.0 lymphocyte%) mono % (test code = mono %) 7.9 % 3.6-12.0 eos % (test code = eos %) 1.9 % 0.0-5.4 basophil % (test code = basophil 0.9 % 0.1-1.2 %) absolute neutrophil count (test 3.11 K/uL 1.56-6.13 code = absolute neutrophil count) Ig# (test code = Ig#) 0.01 K/uL 0.00-0.03 lymph # (test code = lymph #) 2.08 K/uL 1.18-3.74 mono # (test code = mono #) 0.46 K/uL 0.24-0.86 eos # (test code = eos #) 0.11 K/uL 0.04-0.36 basophil # (test code = basophil 0.05 K/uL 0.01-0.08 #) NRBC% (test code = NRBC%) 0 /100 WBC 0-0.2 NRBC# (test code = NRBC#) 0 K/uL [facility] W Auto Differential panel - [id number] 09:01:00 Test Item Value Reference Range Interpretation Comments white blood count (test code = 7.4 K/uL 4.0-11.5 white blood count) red blood count (test code = red 4.80 M/uL 3.80-5.20 blood count) hemoglobin (test code = 13.1 g/dL 10.5-15.7 hemoglobin) hematocrit (test code = 42.9 % 34.0-50.0 hematocrit) MCV [Entitic volume] (test code = 89.4 fL 86-100 53581-3) mean corpuscular hemoglobin (test 27.3 pg 26.2-33.4 code = mean corpuscular hemoglobin) mean corpuscular HGB conc (test 30.5 g/dL 30-34 code = mean corpuscular HGB conc) red cell distribution width (test 13.9 % 12.0-15.5 code = red cell distribution width) platelet count (test code = 381 K/uL 165-450 platelet count) mean platelet volume (test code = 10.3 fL 9.4-12.6 mean platelet volume) Segmented neutrophils/100 59.1 % 44.4-80.1 leukocytes in Blood (test code = 28364-8) Immature granulocytes [#/volume] 0.0 K/uL 0.0-0.03 in Blood (test code = 03122-8) lymphocyte% (test code = 31.9 % 10.0-50.0 lymphocyte%) mono % (test code = mono %) 6.3 % 3.6-12.0 eos % (test code = eos %) 1.7 % 0.0-5.4 Basophils/100 leukocytes in 0.7 % 0.1-1.2 Unspecified specimen (test code = 56429-0) Band form neutrophils [#/volume] 4.39 K/uL 1.56-6.13 in Blood (test code = 68967-1) Lymphocytes [#/volume] in 2.4 K/uL 1.18-3.74 Unspecified specimen by Automated count (test code = 81097-5) mono # (test code = mono #) 0.47 K/uL 0.24-0.86 eos # (test code = eos #) 0.13 K/uL 0.04-0.36 basophil # (test code = basophil 0.05 K/uL 0.01-0.08 #) NRBC% (test code = NRBC%) 0 /100 WBC 0-0.2 NRBC# (test code = NRBC#) 0 [facility], [facility] - [id number] 09:01:00NeutrophilsBandLymphocyteAtypical LymphMonocyteEosinophilBasophilMetamyelocyteMyelocytePromyelocyteBlastsNucleated Red Blood CellDifferential CommentAbs Neutrophil Count (Man)Abs Lymph Count (Man)Abs Monocyte Count (Man)Abs Eosinophil Count (Man)Abs Basophil Count (Man)Platelet EstimatePlatelet Morphol ogyPolychromasiaHypochromasiaPoikilocytosisAnisocytosisMicrocytosisMacrocytosisS chistocytesTarget CellsTear Drop CellsOvalocytesToxic GranulationHypersegmented PolysToxic VacuolationSmudge CellsGiant PlateletsSickle CellsAlliance HospitalC reactive protein [Mass/volume] in Serum or Plasma by High sensitivity [id number] 09:01:00 Test Item Value Reference Range Interpretation Comments C-reactive protein high sens. (test 3.8 mg/L 0.0-5.0 code = C-reactive protein high sens.) [facility] HospitalRheumatoid factor [Units/volume] in Serum or Plasma 2020-10-13 09:01:00 Test Item Value Reference Range Interpretation Comments rheum factor (test code = rheum factor) <10 0-14 [facility] HospitalThyrotropin [Units/volume] in Serum or [id number] 09:01:00 Test Item Value Reference Range Interpretation Comments Thyrotropin [Units/volume] in 0.76 uIU/mL 0.36-3.74 Serum or Plasma (test code = 3016-3) [facility] HospitalErythrocyte sedimentation [id number] 09:01:00 Test Item Value Reference Range Interpretation Comments erythrocyte sedimentation rate (test 19 mm/HR 0.00-20 code = erythrocyte sedimentation rate) [facility] HospitalFolate+Cyanocobalamin [Interpretation] in Serum or Blood 2020-10-13 09:01:00 Test Item Value Reference Range Interpretation Comments vitamin B12 (test code = vitamin 728.7 pg/mL 211-946 B12) folate (test code = folate) 17.12 NG/mL 4.78-24.2 [facility] HospitalUrinalysis complete W Reflex Culture panel - Urine 2020-10-13 09:01:00 Test Item Value Reference Range Interpretation Comments Color of Urine by Auto (test code yellow = 15984-8) Appearance of Urine (test code = turbid clear 5767-9) Glucose [Mass/volume] in Urine negative negative (test code = 2350-7) bilirubin, urine (test code = negative negative bilirubin, urine) ketone, urine (test code = trace negative H ketone, urine) Specific gravity of Urine by >=1.030 1.003-1.030 Automated test strip (test code = 23963-9) Hemoglobin [Presence] in Urine by negative negative Test strip (test code = 5794-3) pH of Urine (test code = 2756-5) 5.000 5-9 protein urine (UA) (test code = negative negative protein urine (UA)) Urobilinogen [Presence] in Urine 1.0 E.U./dL 0.2-1.0 (test code = 98288-2) Nitrite [Presence] in Urine by negative negative Test strip (test code = 5802-4) urine leukocyte esterase (test negative negative code = urine leukocyte esterase) Erythrocytes [Presence] in Urine none seen 0-5 (test code = 08777-1) WBC, urine (test code = WBC, =0-2 0-5 urine) bacteria, urine (test code = few none detect bacteria, urine) Casts [#/area] in Urine sediment none seen none detect by Automated count (test code = 77390-8) urine culture added? (test code = no urine culture added?) squamous epithelial cell urine =0-5 0-5 (test code = squamous epithelial cell urine) Amorphous sediment [Presence] in small none seen Urine sediment by Light microscopy (test code = 8246-1) [facility] HospitalNuclear Ab [Presence] in [id number] 09:01:00 Test Item Value Reference Range Interpretation Comments Nuclear Ab [Presence] in Serum (test negative negative code = 8061-4) [facility] HospitalComprehensive metabolic 2000 panel - Serum or Plasma 2020-04-18 09:11:00 Test Item Value Reference Range Interpretation Comments glucose (test code = glucose) 117 mg/dL 82-115 H Urea nitrogen [Mass/volume] in 16 mg/dL 8-23 Serum or Plasma (test code = 3094-0) osmolality calculated,serum (test 280 mOsm/kg 280-300 code = osmolality calculated,serum) creatinine (test code = 0.5 mg/dL 0.50-0.90 creatinine) glomerular filtration rate (test >60.00 code = glomerular filtration rate) Urea nitrogen/Creatinine [Mass 32.0 12-20 H Ratio] in Serum or Plasma (test code = 3097-3) sodium level (test code = sodium 139 mmol/L 135-145 level) Potassium [Moles/volume] in Body 3.4 mmol/L 3.5-5.2 L fluid (test code = 2821-7) chloride level (test code = 107 mmol/L 98-108 chloride level) CO2 (test code = CO2) 22 mmol/L 21-32 anion gap (test code = anion gap) 13.4 mEq/L 12-20 calcium level (test code = 9.4 mg/dL 8.8-10.2 calcium level) total protein (test code = total 7.4 g/dL 6.6-8.7 protein) albumin (test code = albumin) 3.9 g/dL 3.5-5.2 globulin (test code = globulin) 3.5 gm/dL A/G ratio (test code = A/G ratio) 1.1 >1.0 bilirubin,total (test code = 0.4 mg/dL 0.0-1.2 bilirubin,total) AST/SGOT (test code = AST/SGOT) 22 U/L 15-32 Alanine aminotransferase 20 U/L 0-33 [Enzymatic activity/volume] in Serum or Plasma (test code = 1742-6) Alkaline phosphatase [Enzymatic 104 U/L 35-105 activity/volume] in Serum or Plasma (test code = 6768-6) [facility] HospitalCreatine kinase [Enzymatic activity/volume] in Serum or [id number] 09:11:00 Test Item Value Reference Range Interpretation Comments creatine kinase (test code = creatine 292 U/L 20-180 H kinase) [facility] HospitalTroponin I.cardiac [Mass/volume] in [id number] 09:11:00 Test Item Value Reference Range Interpretation Comments cardiac troponin I (test code = cardiac <0.30 0.0-0.5 troponin I) [facility] HospitalCreatine kinase.MB [Mass/volume] in Serum or Plasma 2020-04-18 09:11:00 Test Item Value Reference Range Interpretation Comments Creatine kinase.MB [Mass/volume] in 2.5 NG/mL 0.0-3.6 Serum or Plasma by Immunoassay (test code = 64194-8) [facility] W Auto Differential panel - [id number] 08:35:00 Test Item Value Reference Range Interpretation Comments white blood count (test code = 6.2 K/uL 4.0-11.5 white blood count) red blood count (test code = red 4.81 M/uL 3.80-5.20 blood count) hemoglobin (test code = 13.1 g/dL 10.5-15.7 hemoglobin) hematocrit (test code = 41.4 % 34.0-50.0 hematocrit) MCV [Entitic volume] (test code = 86.1 fL 86-100 01989-4) mean corpuscular hemoglobin (test 27.2 pg 26.2-33.4 code = mean corpuscular hemoglobin) mean corpuscular HGB conc (test 31.6 g/dL 30-34 code = mean corpuscular HGB conc) red cell distribution width (test 14.3 % 12.0-15.5 code = red cell distribution width) platelet count (test code = 335 K/uL 165-450 platelet count) mean platelet volume (test code = 9.7 fL 9.4-12.6 mean platelet volume) Segmented neutrophils/100 54.5 % 44.4-80.1 leukocytes in Blood (test code = 74395-2) Immature granulocytes [#/volume] 0.0 K/uL 0.0-0.03 in Blood (test code = 79377-3) lymphocyte% (test code = 35.2 % 10.0-50.0 lymphocyte%) mono % (test code = mono %) 6.8 % 3.6-12.0 eos % (test code = eos %) 2.4 % 0.0-5.4 Basophils/100 leukocytes in 0.8 % 0.1-1.2 Unspecified specimen (test code = 44047-2) Band form neutrophils [#/volume] 3.39 K/uL 1.56-6.13 in Blood (test code = 19079-8) Lymphocytes [#/volume] in 2.2 K/uL 1.18-3.74 Unspecified specimen by Automated count (test code = 95463-4) mono # (test code = mono #) 0.42 K/uL 0.24-0.86 eos # (test code = eos #) 0.15 K/uL 0.04-0.36 basophil # (test code = basophil 0.05 K/uL 0.01-0.08 #) NRBC% (test code = NRBC%) 0 /100 WBC 0-0.2 NRBC# (test code = NRBC#) 0 K/uL [facility] HospitalDifferential panel, method unspecified - [id number] 08:35:00NeutrophilsBandLymphocyteAtypical LymphMonocyteEosinophilBasophilNucleated Red Blood CellDifferential CommentPlatelet EstimatePlatelet MorphologyOvalocytesToxic GranulationSmudge CellsMaWayne General HospitalUrinalysis complete panel - [id number] 08:12:00 Test Item Value Reference Range Interpretation Comments Color of Urine by Auto (test light yellow code = 17700-6) Appearance of Urine (test code clear clear = 5767-9) Glucose [Presence] in Urine by negative negative Automated test strip (test code = 30117-7) Bilirubin.total [Mass/volume] negative negative in Urine (test code = 1978-6) Ketones [Mass/volume] in Urine negative negative by Automated test strip (test code = 99773-3) Specific gravity of Urine by 1.020 1.003-1.030 Automated test strip (test code = 04939-8) blood urine (test code = blood negative negative urine) pH of Urine (test code = 6.000 5-9 2756-5) protein urine (UA) (test code = negative negative protein urine (UA)) Urobilinogen [Presence] in =2.0 0.2-1.0 H Urine (test code = 24462-3) Nitrite [Presence] in Urine by negative negative Test strip (test code = 5802-4) Leukocyte esterase [Presence] negative negative in Urine by Automated test strip (test code = 39226-6) Erythrocytes [#/volume] in <1 0-5 Urine by Automated count (test code = 798-9) Leukocytes [#/area] in Urine <1 0-5 sediment by Automated count (test code = 86758-5) Epithelial cells [Presence] in =1-5 0-5 Urine sediment by Light microscopy (test code = 09574-2) Bacteria identified in Urine by small(1 none detect Culture (test code = 630-4) Casts [#/area] in Urine none detected none detect sediment by Automated count (test code = 90669-1) urine culture added? (test code no = urine culture added?) [facility] HospitalPT/[id number] 00:00:00 Test Item Value Reference Range Interpretation Comments prothrombin time (test code = 35.2 seconds 10.3-12.3 H prothrombin time) INR in Blood by Coagulation 3.49 assay (test code = 69098-1) [facility] Hospitalpartial thromboplastin [id number] 00:00:00 Test Item Value Reference Range Interpretation Comments INR in Blood by Coagulation 40.9 seconds 22.5-37.0 H assay (test code = 94131-1) [facility] HospitalUrinalysis complete panel - [id number] 07:01:00 Test Item Value Reference Range Interpretation Comments Color of Urine by Auto (test light yellow code = 21106-4) Appearance of Urine (test code = clear clear 5767-9) Glucose [Presence] in Urine by negative negative Automated test strip (test code = 54652-8) Bilirubin.total [Mass/volume] in negative negative Urine (test code = 1978-6) Ketones [Mass/volume] in Urine negative negative by Automated test strip (test code = 32986-9) Specific gravity of Urine by 1.029 1.003-1.030 Automated test strip (test code = 93748-3) blood urine (test code = blood negative negative urine) pH of Urine (test code = 2756-5) 5.500 5-9 protein urine (UA) (test code = trace negative protein urine (UA)) Urobilinogen [Presence] in Urine =2.0 0.2-1.0 H (test code = 14515-3) Nitrite [Presence] in Urine by negative negative Test strip (test code = 5802-4) Leukocyte esterase [Presence] in negative negative Urine by Automated test strip (test code = 30001-8) Erythrocytes [#/volume] in Urine <1 0-5 by Automated count (test code = 798-9) Leukocytes [#/area] in Urine =1-5 0-5 sediment by Automated count (test code = 42702-3) Epithelial cells [Presence] in =1-5 0-5 Urine sediment by Light microscopy (test code = 76787-6) Bacteria identified in Urine by small(1 none detect Culture (test code = 630-4) Casts [#/area] in Urine sediment =2-5 none detect by Automated count (test code = 00886-4) urine culture added? (test code no = urine culture added?) [facility] W Auto Differential panel - [id number] 06:51:00 Test Item Value Reference Range Interpretation Comments white blood count (test code = 7.1 K/uL 4.0-11.5 white blood count) red blood count (test code = red 4.61 M/uL 3.80-5.20 blood count) hemoglobin (test code = 12.6 g/dL 10.5-15.7 hemoglobin) hematocrit (test code = 41.3 % 34.0-50.0 hematocrit) MCV [Entitic volume] (test code = 89.6 fL 86-100 32021-1) mean corpuscular hemoglobin (test 27.3 pg 26.2-33.4 code = mean corpuscular hemoglobin) mean corpuscular HGB conc (test 30.5 g/dL 30-34 code = mean corpuscular HGB conc) red cell distribution width (test 13.8 % 12.0-15.5 code = red cell distribution width) platelet count (test code = 327 K/uL 165-450 platelet count) mean platelet volume (test code = 9.4 fL 9.4-12.6 mean platelet volume) Segmented neutrophils/100 59.8 % 44.4-80.1 leukocytes in Blood (test code = 00785-9) Immature granulocytes [#/volume] 0.0 K/uL 0.0-0.03 in Blood (test code = 55865-1) lymphocyte% (test code = 29.6 % 10.0-50.0 lymphocyte%) mono % (test code = mono %) 6.8 % 3.6-12.0 eos % (test code = eos %) 2.7 % 0.0-5.4 Basophils/100 leukocytes in 0.8 % 0.1-1.2 Unspecified specimen (test code = 58630-7) Band form neutrophils [#/volume] 4.24 K/uL 1.56-6.13 in Blood (test code = 53310-2) Lymphocytes [#/volume] in 2.1 K/uL 1.18-3.74 Unspecified specimen by Automated count (test code = 07877-4) mono # (test code = mono #) 0.48 K/uL 0.24-0.86 eos # (test code = eos #) 0.19 K/uL 0.04-0.36 basophil # (test code = basophil 0.06 K/uL 0.01-0.08 #) NRBC% (test code = NRBC%) 0 /100 WBC 0-0.2 NRBC# (test code = NRBC#) 0 K/uL [facility] HospitalDifferential panel, method unspecified - [id number] 06:51:00NeutrophilsBandLymphocyteAtypical LymphMonocyteEosinophilBasophilMetamyelocytePlatelet EstimatePlatelet MorphologyHypochromasiaAnisocytosisRouHighland Community HospitalComprehensive metabolic 2000 panel - Serum or [id number] 06:51:00 Test Item Value Reference Range Interpretation Comments Glucose [Mass/volume] in Serum or 90 mg/dL 82-115 Plasma (test code = 2345-7) Urea nitrogen [Mass/volume] in 20 mg/dL 8-23 Serum or Plasma (test code = 3094-0) osmolality calculated,serum (test 280 mOsm/kg 280-300 code = osmolality calculated,serum) creatinine (test code = 0.6 mg/dL 0.50-0.90 creatinine) glomerular filtration rate (test >60.00 code = glomerular filtration rate) Urea nitrogen/Creatinine [Mass 33.3 12-20 H Ratio] in Serum or Plasma (test code = 3097-3) sodium level (test code = sodium 139 mmol/L 135-145 level) potassium level (test code = 4.1 mmol/L 3.5-5.2 potassium level) chloride level (test code = 106 mmol/L 98-108 chloride level) CO2 (test code = CO2) 25 mmol/L 21-32 anion gap (test code = anion gap) 12.1 mEq/L 12-20 calcium level (test code = 9.5 mg/dL 8.8-10.2 calcium level) total protein (test code = total 7.5 g/dL 6.6-8.7 protein) albumin (test code = albumin) 4.2 g/dL 3.5-5.2 globulin (test code = globulin) 3.3 gm/dL A/G ratio (test code = A/G ratio) 1.3 >1.0 bilirubin,total (test code = <0.3 0.0-1.2 bilirubin,total) AST/SGOT (test code = AST/SGOT) 22 U/L 15-32 Alanine aminotransferase 23 U/L 0-33 [Enzymatic activity/volume] in Serum or Plasma (test code = 1742-6) Alkaline phosphatase [Enzymatic 110 U/L 35-105 H activity/volume] in Serum or Plasma (test code = 6768-6) [facility] HospitalCreatine kinase [Enzymatic activity/volume] in Serum or [id number] 06:51:00 Test Item Value Reference Range Interpretation Comments creatine kinase (test code = creatine 169 U/L 20-180 kinase) [facility] HospitalNatriuretic peptide.B prohormone N-Terminal [Mass/volume] in Serum or [id number] 06:51:00 Test Item Value Reference Range Interpretation Comments N-term pro natriuretic peptide 104 pg/mL 0-125 (test code = N-term pro natriuretic peptide) [facility] HospitalTroponin I.cardiac [Mass/volume] in [id number] 06:51:00 Test Item Value Reference Range Interpretation Comments cardiac troponin I (test code = cardiac <0.30 0.0-0.5 troponin I) [facility] HospitalCreatine kinase.MB [Mass/volume] in Serum or Plasma 2020-03-18 06:51:00 Test Item Value Reference Range Interpretation Comments Creatine kinase.MB [Mass/volume] in 1.6 NG/mL 0.0-3.6 Serum or Plasma by Immunoassay (test code = 23961-8) [facility] HospitalPT/[id number] 06:51:00 Test Item Value Reference Range Interpretation Comments prothrombin time (test code = 9.9 seconds 10.3-12.3 L prothrombin time) INR in Blood by Coagulation assay 0.91 (test code = 01276-0) [facility] Hospitalpartial thromboplastin [id number] 06:51:00 Test Item Value Reference Range Interpretation Comments INR in Blood by Coagulation 31.3 seconds 22.5-37.0 assay (test code = 56447-7) [facility] W Auto Differential panel - [id number] 10:30:00 Test Item Value Reference Range Interpretation Comments white blood count (test code = 6.2 K/uL 4.0-11.5 white blood count) red blood count (test code = red 4.76 M/uL 3.80-5.20 blood count) hemoglobin (test code = 13.2 g/dL 10.5-15.7 hemoglobin) hematocrit (test code = 41.5 % 34.0-50.0 hematocrit) Erythrocyte mean corpuscular 87.2 fL 86-100 volume [Entitic volume] (test code = 76939-5) mean corpuscular hemoglobin (test 27.7 pg 26.2-33.4 code = mean corpuscular hemoglobin) mean corpuscular HGB conc (test 31.8 g/dL 30-34 code = mean corpuscular HGB conc) red cell distribution width (test 13.8 % 12.0-15.5 code = red cell distribution width) platelet count (test code = 345 K/uL 165-450 platelet count) mean platelet volume (test code = 9.4 fL 9.4-12.6 mean platelet volume) Neutrophils.segmented/100 53.8 % 44.4-80.1 leukocytes in Blood (test code = 95003-6) Granulocytes Immature [#/volume] 0.0 K/uL 0.0-0.03 in Blood (test code = 37859-4) lymphocyte% (test code = 35.9 % 10.0-50.0 lymphocyte%) mono % (test code = mono %) 6.5 % 3.6-12.0 eos % (test code = eos %) 2.8 % 0.0-5.4 Basophils/100 leukocytes in 0.8 % 0.1-1.2 Unspecified specimen (test code = 77286-5) Neutrophils.band form [#/volume] 3.31 K/uL 1.56-6.13 in Blood (test code = 92592-7) Lymphocytes [#/volume] in 2.2 K/uL 1.18-3.74 Unspecified specimen by Automated count (test code = 73425-0) mono # (test code = mono #) 0.40 K/uL 0.24-0.86 eos # (test code = eos #) 0.17 K/uL 0.04-0.36 basophil # (test code = basophil 0.05 K/uL 0.01-0.08 #) NRBC% (test code = NRBC%) 0 /100 WBC 0-0.2 NRBC# (test code = NRBC#) 0 K/uL [facility] Hospitaldifferential panel, [id number] 10:30:00 NeutrophilsLymphocyteAtypical LymphMonocyteEosinophilBasophilPlatelet Estimate [facility] HospitalComprehensive metabolic 2000 panel - Serum or Plasma 2019-09-02 10:30:00 Test Item Value Reference Range Interpretation Comments glucose (test code = glucose) 95 mg/dL 82-115 Urea nitrogen [Mass/volume] in 14 mg/dL 8-23 Serum or Plasma (test code = 3094-0) osmolality calculated,serum (test 280 mOsm/kg 280-300 code = osmolality calculated,serum) creatinine (test code = 0.5 mg/dL 0.50-0.90 creatinine) glomerular filtration rate (test >60.00 code = glomerular filtration rate) Urea nitrogen/Creatinine [Mass 28.0 12-20 H Ratio] in Serum or Plasma (test code = 3097-3) sodium level (test code = sodium 140 mmol/L 135-145 level) Potassium [Moles/volume] in Body 3.6 mmol/L 3.5-5.2 fluid (test code = 2821-7) chloride level (test code = 104 mmol/L 98-108 chloride level) CO2 (test code = CO2) 26 mmol/L 21-32 anion gap (test code = anion gap) 13.6 mEq/L 12-20 calcium level (test code = 10.3 mg/dL 8.8-10.2 H calcium level) total protein (test code = total 8.4 g/dL 6.6-8.7 protein) albumin (test code = albumin) 4.4 g/dL 3.5-5.2 globulin (test code = globulin) 4.0 gm/dL A/G ratio (test code = A/G ratio) 1.1 >1.0 bilirubin,total (test code = 0.6 mg/dL 0.0-1.2 bilirubin,total) AST/SGOT (test code = AST/SGOT) 27 U/L 15-32 Alanine aminotransferase 30 U/L 0-33 [Enzymatic activity/volume] in Serum or Plasma (test code = 1742-6) Alkaline phosphatase [Enzymatic 131 U/L 35-105 H activity/volume] in Serum or Plasma (test code = 6768-6) [facility] W Auto Differential panel - [id number] 07:11:00 Test Item Value Reference Range Interpretation Comments white blood count (test code = 5.5 K/uL 4.0-11.5 white blood count) red blood count (test code = red 4.67 M/uL 3.80-5.20 blood count) Hemoglobin [Mass/volume] in Blood 12.7 g/dL 10.5-15.7 (test code = 718-7) hematocrit (test code = hematocrit) 41.5 % 34.0-50.0 Erythrocyte mean corpuscular volume 88.8 fL 78-98 [Entitic volume] (test code = 70142-6) Erythrocyte mean corpuscular 27.1 pg 26.2-33.4 hemoglobin [Entitic mass] (test code = 68223-4) mean corpuscular HGB conc (test 30.6 g/dL 31.5-36.2 L code = mean corpuscular HGB conc) red cell distribution width (test 12.9 % 11.5-15.5 code = red cell distribution width) Platelets [#/volume] in Blood (test 375 K/uL 137-338 H code = 90512-2) Platelet mean volume [Entitic 7.5 fL 8.4-11.8 L volume] in Blood (test code = 54838-8) Neutrophils.band form/100 59.3 % 44.4-80.1 leukocytes in Blood (test code = 85036-0) Lymphocytes/100 leukocytes in Body 31.8 % 10.0-50.0 fluid (test code = 76619-2) Monocytes/100 leukocytes in Blood 5.9 % 3.6-12.04 by Automated count (test code = 5905-5) Eosinophils/100 leukocytes in Blood 1.3 % 0.0-5.41 by Automated count (test code = 713-8) Basophils/100 leukocytes in 1.7 % 0.0-0.79 H Unspecified specimen (test code = 20191-8) [facility] HospitalComprehensive [facility] 2000 panel - Serum or Plasma 2018-10-30 07:11:00 Test Item Value Reference Range Interpretation Comments Glucose [Mass/volume] in Serum or 100 mg/dL 82-115 Plasma (test code = 2345-7) Urea nitrogen [Mass/volume] in 13 mg/dL 8-23 Serum or Plasma (test code = 3094-0) Osmolality of Serum or Plasma 283 280-300 (test code = 2692-2) creatinine (test code = 0.7 mg/dL 0.50-0.90 creatinine) glomerular filtration rate (test >60.00 code = glomerular filtration rate) Urea nitrogen/Creatinine [Mass 18.6 12-20 Ratio] in Serum or Plasma (test code = 3097-3) sodium level (test code = sodium 142 mmol/L 135-145 level) potassium level (test code = 3.9 mmol/L 3.5-5.2 potassium level) chloride level (test code = 104 mmol/L 98-108 chloride level) CO2 (test code = CO2) 25 mmol/L 21-32 anion gap (test code = anion gap) 16.9 mEq/L 12-20 calcium level (test code = calcium 9.8 mg/dL 8.8-10.2 level) total protein (test code = total 8.1 g/dL 6.6-8.7 protein) albumin (test code = albumin) 4.6 g/dL 3.5-5.2 globulin (test code = globulin) 3.5 gm/dL A/G ratio (test code = A/G ratio) 1.3 >1.0 bilirubin,total (test code = 0.3 mg/dL 0.0-1.2 bilirubin,total) AST/SGOT (test code = AST/SGOT) 25 U/L 15-32 Alanine aminotransferase 22 U/L 0-33 [Enzymatic activity/volume] in Serum or Plasma (test code = 1742-6) Alkaline phosphatase [Enzymatic 100 U/L 35-105 activity/volume] in Serum or Plasma (test code = 6768-6) [facility] HospitalCB W Auto Differential panel - [id number] 10:10:00 Test Item Value Reference Range Interpretation Comments white blood count (test code = 9.7 K/uL 4.0-11.5 white blood count) red blood count (test code = red 4.55 M/uL 3.80-5.20 blood count) Hemoglobin [Mass/volume] in Blood 12.8 g/dL 10.5-15.7 (test code = 718-7) hematocrit (test code = hematocrit) 40.2 % 34.0-50.0 Erythrocyte mean corpuscular volume 88.4 fL 78-98 [Entitic volume] (test code = 71778-0) Erythrocyte mean corpuscular 28.0 pg 26.2-33.4 hemoglobin [Entitic mass] (test code = 19988-7) mean corpuscular HGB conc (test 31.7 g/dL 31.5-36.2 code = mean corpuscular HGB conc) red cell distribution width (test 12.8 % 11.5-15.5 code = red cell distribution width) Platelets [#/volume] in Blood (test 341 K/uL 137-338 H code = 35798-7) Platelet mean volume [Entitic 7.3 fL 8.4-11.8 L volume] in Blood (test code = 32816-1) Neutrophils.band form/100 52.2 % 44.4-80.1 leukocytes in Blood (test code = 60523-4) Lymphocytes/100 leukocytes in Body 39.1 % 10.0-50.0 fluid (test code = 92519-3) Monocytes/100 leukocytes in Blood 5.4 % 3.6-12.04 by Automated count (test code = 5905-5) Eosinophils/100 leukocytes in Blood 1.4 % 0.0-5.41 by Automated count (test code = 713-8) Basophils/100 leukocytes in Blood 1.9 % 0.0-0.79 H by Automated count (test code = 706-2) [facility]differential panel, [id number] 10:10:00 NeutrophilsBandLymphocyteAtypical LymphMonocyteMetamyelocytePlatelet EstimatePlatelet MorphologyMaWayne General HospitalPT/[id number] 10:10:00 Test Item Value Reference Range Interpretation Comments prothrombin time (test code = 10.1 seconds 10.3-12.3 L prothrombin time) INR in Blood by Coagulation 0.92 assay (test code = 59978-5) [facility]partial thromboplastin [id number] 10:10:00 Test Item Value Reference Range Interpretation Comments INR in Blood by Coagulation 29.6 seconds 22.5-37.0 assay (test code = 54442-5) [facility] HospitalComprehensive [facility] 2000 panel - Serum or Plasma 2018-09-14 10:10:00 Test Item Value Reference Range Interpretation Comments Glucose [Mass/volume] in Serum or 102 mg/dL 82-115 Plasma (test code = 2345-7) Urea nitrogen [Mass/volume] in 12 mg/dL 8-23 Serum or Plasma (test code = 3094-0) Osmolality of Serum or Plasma 276 280-300 L (test code = 2692-2) creatinine (test code = 0.7 mg/dL 0.50-0.90 creatinine) glomerular filtration rate (test >60.00 code = glomerular filtration rate) Urea nitrogen/Creatinine [Mass 17.1 12-20 Ratio] in Serum or Plasma (test code = 3097-3) sodium level (test code = sodium 138 mmol/L 135-145 level) potassium level (test code = 3.4 mmol/L 3.5-5.2 L potassium level) chloride level (test code = 100 mmol/L 98-108 chloride level) CO2 (test code = CO2) 26 mmol/L 21-32 anion gap (test code = anion gap) 15.4 mEq/L 12-20 calcium level (test code = calcium 10.6 mg/dL 8.8-10.2 H level) total protein (test code = total 8.5 g/dL 6.6-8.7 protein) albumin (test code = albumin) 4.7 g/dL 3.5-5.2 globulin (test code = globulin) 3.8 gm/dL A/G ratio (test code = A/G ratio) 1.2 >1.0 bilirubin,total (test code = 0.3 mg/dL 0.0-1.2 bilirubin,total) AST/SGOT (test code = AST/SGOT) 24 U/L 15-32 Alanine aminotransferase 23 U/L 0-33 [Enzymatic activity/volume] in Serum or Plasma (test code = 1742-6) Alkaline phosphatase [Enzymatic 97 U/L 35-105 activity/volume] in Serum or Plasma (test code = 6768-6) [facility] [Moles/volume] in Unspecified specimen 2018-09-14 10:10:00 Test Item Value Reference Range Interpretation Comments magnesium level (test code = 2.0 mg/dL 1.6-2.4 magnesium level) [facility]Creat[facility] kinase [Enzymatic activity/volume] in Serum or [id number] 10:10:00 Test Item Value Reference Range Interpretation Comments creatine kinase (test code = creatine 296 U/L 20-180 H kinase) [facility] HospitalNatriuretic peptide.B prohormone N-Terminal [Mass/volume] in Serum or [id number] 10:10:00 Test Item Value Reference Range Interpretation Comments N-term pro natriuretic peptide (test 62 pg/mL 0-125 code = N-term pro natriuretic peptide) [facility] HospitalTroponin I.cardiac [Mass/volume] in [id number] 10:10:00 Test Item Value Reference Range Interpretation Comments cardiac troponin I (test code = cardiac <0.30 0.0-0.5 troponin I) [facility] HospitalMyoglobin [Mass/volume] in Serum or [id number] 10:10:00 Test Item Value Reference Range Interpretation Comments myoglobin (test code = myoglobin) 61 NG/mL 25-58 H [facility] HospitalCreatine kinase.MB [Mass/volume] in Serum or Plasma 2018-09-14 10:10:00 Test Item Value Reference Range Interpretation Comments mass creatinine kinase-mb (test 3.2 NG/mL 0.0-3.6 code = mass creatinine kinase-mb) [facility] HospitalUrinalysis complete panel - [id number] 11:59:00 Test Item Value Reference Range Interpretation Comments Color of Urine by Auto yellow (test code = 05462-1) Appearance of Urine (test clear clear code = 5767-9) Glucose [Presence] in negative negative Urine by Automated test strip (test code = 66255-3) Bilirubin.total negative negative [Mass/volume] in Urine (test code = 1978-6) Ketones [Mass/volume] in negative negative Urine by Automated test strip (test code = 95894-1) Specific gravity of Urine 1.022 1.003-1.030 by Automated test strip (test code = 54173-5) blood urine (test code = negative negative blood urine) pH of Urine (test code = 6.000 5-9 2756-5) protein urine (UA) (test trace negative code = protein urine (UA)) Urobilinogen [Presence] in =2.0 0.2-1.0 H Urine (test code = 11286-1) Nitrite [Presence] in negative negative Urine by Test strip (test code = 5802-4) Leukocyte esterase negative negative [Presence] in Urine by Automated test strip (test code = 68999-8) Erythrocytes [#/volume] in =1-5 0-5 Urine by Automated count (test code = 798-9) Leukocytes [#/area] in <1 0-5 Urine sediment by Automated count (test code = 59558-4) Epithelial cells =1-5 0-5 [Presence] in Urine sediment by Light microscopy (test code = 09483-9) Bacteria identified in small(1 none detect Urine by Culture (test code = 630-4) Casts [#/area] in Urine =2-5 none detect sediment by Automated count (test code = 12571-5) urine culture added? (test yes code = urine culture added?) path casts,U (test code = fine granular (1-5 none detect A path casts,U) [facility] HospitalBacteria identified in Urine by [id number] 11:59:00 Test Item Value Reference Range Interpretation Comments Bacteria identified in no growth after 2 Urine by Culture (test days code = 630-4) [facility] W Auto Differential panel - [id number] 11:55:00 Test Item Value Reference Range Interpretation Comments white blood count (test code = 5.7 K/uL 4.0-11.5 white blood count) red blood count (test code = red 4.66 M/uL 3.80-5.20 blood count) Hemoglobin [Mass/volume] in Blood 12.9 g/dL 10.5-15.7 (test code = 718-7) hematocrit (test code = hematocrit) 40.4 % 34.0-50.0 Erythrocyte mean corpuscular volume 86.7 fL 78-98 [Entitic volume] (test code = 40897-2) Erythrocyte mean corpuscular 27.7 pg 26.2-33.4 hemoglobin [Entitic mass] (test code = 43134-7) mean corpuscular HGB conc (test 31.9 g/dL 31.5-36.2 code = mean corpuscular HGB conc) red cell distribution width (test 13.8 % 11.5-15.5 code = red cell distribution width) Platelets [#/volume] in Blood (test 319 K/uL 137-338 code = 43174-9) Platelet mean volume [Entitic 6.7 fL 8.4-11.8 L volume] in Blood (test code = 21035-8) Neutrophils.band form/100 47.4 % 44.4-80.1 leukocytes in Blood (test code = 50095-7) Lymphocytes/100 leukocytes in Body 42.0 % 10.0-50.0 fluid (test code = 04730-7) Monocytes/100 leukocytes in Blood 7.5 % 3.6-12.04 by Automated count (test code = 5905-5) Eosinophils/100 leukocytes in Blood 2.0 % 0.0-5.41 by Automated count (test code = 713-8) Basophils/100 leukocytes in Blood 1.2 % 0.0-0.79 H by Automated count (test code = 706-2) [facility]different[facility] panel, [id number] 11:55:00 NeutrophilsBandLymphocyteAtypical LymphMonocyteEosinophilBasophilNucleated Red Blood CellPlatelet EstimatePlatelet MorphologyHypochromasiaPoikilocytosisAnisocytosisMacrocytosisToxic GranulationDohle BodiesMaWayne General HospitalComprehensive metabolic 2000 panel - Serum or [id number] 11:55:00 Test Item Value Reference Range Interpretation Comments Glucose [Mass/volume] in Serum or 187 mg/dL 82-115 H Plasma (test code = 2345-7) Urea nitrogen [Mass/volume] in 12 mg/dL 8-23 Serum or Plasma (test code = 3094-0) Osmolality of Serum or Plasma 279 280-300 L (test code = 2692-2) creatinine (test code = 0.7 mg/dL 0.50-0.90 creatinine) glomerular filtration rate (test >60.00 code = glomerular filtration rate) Urea nitrogen/Creatinine [Mass 17.1 12-20 Ratio] in Serum or Plasma (test code = 3097-3) sodium level (test code = sodium 137 mmol/L 135-145 level) potassium level (test code = 3.6 mmol/L 3.5-5.2 potassium level) chloride level (test code = 102 mmol/L 98-108 chloride level) CO2 (test code = CO2) 26 mmol/L 21-32 anion gap (test code = anion gap) 12.6 mEq/L 12-20 calcium level (test code = calcium 9.7 mg/dL 8.8-10.2 level) total protein (test code = total 7.6 g/dL 6.6-8.7 protein) albumin (test code = albumin) 4.3 g/dL 3.5-5.2 globulin (test code = globulin) 3.3 gm/dL A/G ratio (test code = A/G ratio) 1.3 >1.0 bilirubin,total (test code = 0.4 mg/dL 0.0-1.2 bilirubin,total) AST/SGOT (test code = AST/SGOT) 20 U/L 15-32 Alanine aminotransferase 20 U/L 0-33 [Enzymatic activity/volume] in Serum or Plasma (test code = 1742-6) Alkaline phosphatase [Enzymatic 85 U/L 35-105 activity/volume] in Serum or Plasma (test code = 6768-6) [facility] HospitalLipase [Enzymatic activity/volume] in Serum or Plasma 2018-06-22 11:55:00 Test Item Value Reference Range Interpretation Comments Lipase [Enzymatic activity/volume] in 70 U/L 13-60 H Serum or Plasma (test code = 3040-3) [facility] W Auto Differential panel - [id number] 11:50:00 Test Item Value Reference Range Interpretation Comments white blood count (test code = 7.2 K/uL 4.0-11.5 white blood count) red blood count (test code = red 4.61 M/uL 3.80-5.20 blood count) Hemoglobin [Mass/volume] in Blood 13.0 g/dL 10.5-15.7 (test code = 718-7) hematocrit (test code = hematocrit) 40.6 % 34.0-50.0 Erythrocyte mean corpuscular volume 88.2 fL 78-98 [Entitic volume] (test code = 48435-4) Erythrocyte mean corpuscular 28.1 pg 26.2-33.4 hemoglobin [Entitic mass] (test code = 69007-6) mean corpuscular HGB conc (test 31.9 g/dL 31.5-36.2 code = mean corpuscular HGB conc) red cell distribution width (test 13.9 % 11.5-15.5 code = red cell distribution width) Platelets [#/volume] in Blood (test 338 K/uL 137-338 code = 30618-5) Platelet mean volume [Entitic 7.0 fL 8.4-11.8 L volume] in Blood (test code = 46533-2) Neutrophils.band form/100 50.7 % 44.4-80.1 leukocytes in Blood (test code = 84690-0) Lymphocytes/100 leukocytes in Body 39.8 % 10.0-50.0 fluid (test code = 07725-8) Monocytes/100 leukocytes in Blood 6.5 % 3.6-12.04 by Automated count (test code = 5905-5) Eosinophils/100 leukocytes in Blood 1.1 % 0.0-5.41 by Automated count (test code = 713-8) Basophils/100 leukocytes in Blood 1.9 % 0.0-0.79 H by Automated count (test code = 706-2) [facility]different[facility], [id number] 11:50:00 NeutrophilsBandLymphocyteAtypical LymphMonocyteEosinophilBasophilMetamyelocytePlatelet EstimatePlatelet MorphologyHypochromasiaAnisocytosisMicrocytosisStomatocyteToxic GranulationHypersegmented PolysRouleauToxic VacuolationSmudge CellsGiant PlateletsDifferential comment-PMatagorda Medical Groupfecal occult blood, stool 2018-06-18 08:08:00ResNorth [facility] HospitalClostridium difficile toxin A+B [Presence] in [id number] 08:08:00ResNorth [facility] HospitalLeukocytes [Presence] in Stool by Light [id number] 08:08:00ResNorth [facility] State HospitalOva and parasites identified in Unspecified specimen by [id number] 08:08:00 Test Item Value Reference Range Interpretation Comments Microscopic observation final report [Identifier] in Unspecified specimen by Ova & Parasite Preparation (test code = 673-4) [facility]
[2022-05-01] MEDS ORDERED: DOXYCYCLINE 100 MG CAP PO ONE (19:43)
[2022-05-01] MEDS ORDERED: SMZ./TMP. 800/160 MG TABLET ONE (19:43)
[2022-05-01] MEDS ORDERED: LIDOCAINE 1% W/EPI 1:100,000 30 ML VIAL ONE (19:45)
--- NOTE | 2022-05-01 20:58 | ER ---
Nurse's Notes [facility] Name: Jessica Horowitz Age: 66 yrs Sex: Female : 1955 Arrival Date: 05/01/2022 Time: 18:49 Bed 26 Private MD: Diagnosis: Cutaneous abscess of other sites-left lower leg;Cellulitis of left lower limb Presentation: 05/01 19:07 Chief complaint: Patient states: spider bit on 04/21/22, went to [place] ER on vg1 04/22/22 and was prescribed Sulfamethoxazole 800/160 mg and Mupirocin ointment. Spider bite is on the Left reynoso and pt states "it is worse". Coronavirus screen: Vaccine status: Patient reports receiving the 2nd dose of the covid vaccine. Client denies travel out of the [place] in the last 14 days. Ebola Screen: Patient negative for fever greater than or equal to 101.5 degrees Fahrenheit, and additional compatible Ebola Virus Disease symptoms Patient denies exposure to infectious person. Initial Sepsis Screen: Does the patient meet any 2 criteria? No. Patient's initial sepsis screen is negative. Does the patient have a suspected source of infection? No. Patient's initial sepsis screen is negative. Risk Assessment: Do you want to hurt yourself or someone else? Patient reports no desire to harm self or others. Onset of symptoms was April 21, 2022. 19:07 Method Of Arrival: Ambulatory vg1 19:07 Acuity: JOAO 4 vg1 Triage Assessment: 19:10 General: Appears uncomfortable, Behavior is calm, cooperative. Pain: Complains of pain vg1 in left reynoso Pain currently is 10 out of 10 on a pain scale. Derm: Wound noted left reynoso. Musculoskeletal:. Historical: - Allergies: 19:10 PENICILLINS; vg1 - Home Meds: 19:10 Metformin Oral [Active]; vg1 - PMHx: 19:10 Diabetes mellitus; Arthritis; Dementia; Alzheimer's disease; vg1 - Immunization history:: Client reports receiving the 2nd dose of the Covid vaccine. - Social history:: Smoking status: Patient/guardian denies using tobacco, the patient reports quitting approximately 30 years ago. - Family history:: not pertinent. Screenin:11 Abuse screen: Denies threats or abuse. Denies injuries from another. Nutritional tp1 screening: No deficits noted. Tuberculosis screening: No symptoms or risk factors identified. Fall Risk None identified. Assessment: 19:30 General: Appears in no apparent distress. comfortable, Behavior is calm, cooperative. tp1 Pain: Complains of pain in lateral aspect of left calf Pain does not radiate. Pain currently is 0 out of 10 on a pain scale. Quality of pain is described as sharp, Is intermittent, Aggravated by weight bearing. Neuro: Level of Consciousness is awake, alert, obeys commands, Oriented to person, place, time, situation. Cardiovascular: Capillary refill < 3 seconds in bilateral toes Patient's skin is warm and dry. Respiratory: Airway is patent Respiratory effort is even, unlabored. GI: Abdomen is flat, non-distended, Patient currently denies diarrhea, nausea, vomiting. : No signs and/or symptoms were reported regarding the genitourinary system. EENT: No signs and/or symptoms were reported regarding the EENT system. Derm: Skin is pink, warm \\T\\ dry. Wound noted lateral aspect of left calf Wound is wound bed appears to be red, clear drainage noted. Musculoskeletal: Circulation, motion, and sensation intact. 20:11 Reassessment: Patient appears in no apparent distress at this time. No changes from tp1 previously documented assessment. Patient and/or family updated on plan of care and expected duration. Pain level reassessed. Patient is alert, oriented x 3, equal unlabored respirations, skin warm/dry/pink. Patient denies pain at this time. 21:14 Reassessment: Patient appears in no apparent distress at this time. No changes from em6 previously documented assessment. Patient and/or family updated on plan of care and expected duration. Pain level reassessed. Patient is alert, oriented x 3, equal unlabored respirations, skin warm/dry/pink. Vital Signs: 19:07 BP 121 / 64; Pulse 75; Resp 16; Temp 97.3; Pulse Ox 97% ; Weight 68.04 kg; Height 5 ft. vg1 3 in. (160.02 cm); Pain 10/10; 20:11 BP 119 / 59; Pulse 75; Resp 16; Pulse Ox 98% on R/A; tp1 21:14 BP 114 / 74; Pulse 72; Resp 18; Pulse Ox 100% on R/A; em6 19:07 Body Mass Index 26.57 (68.04 kg, 160.02 cm) vg1 ED Course: 18:49 Patient arrived in ED. am2 19:10 Triage completed. vg1 19:10 Arm band placed on. vg1 19:13 Jaydon Land MD is Attending Physician. román 19:39 India Landa, NABOR is Primary Nurse. tp1 19:45 Bed in low position. Call light in reach. Side rails up X2. Pulse ox on. NIBP on. Warm em6 blanket given. 20:57 Deejay Moya MD is Referral Physician. román 21:16 No provider procedures requiring assistance completed. em6 21:17 Patient did not have IV access during this emergency room visit. tp1 Administered Medications: 19:46 Drug: Doxycycline 200 mg Route: PO; tp1 20:20 Follow up: Response: No adverse reaction em6 19:46 Drug: Bactrim (trimethoprim-sulfamethoxazole) (160 mg-800 mg (DS) 1 tablet Route: PO; tp1 20:20 Follow up: Response: No adverse reaction em6 20:45 Drug: Lidocaine-Epinephrine -1%: (1:100,000) 10 ml {Note: administered by dr land.} em6 Volume: 20 ml; Route: Infiltration; 21:15 Follow up: Response: No adverse reaction em6 21:07 Drug: Bactroban (mupirocin) Ointment 2 % 1 application Route: Topical; Site: affected em6 area; 21:28 Follow up: Response: No adverse reaction em6 Medication: 21:14 VIS not applicable for this client. em6 Outcome: 20:58 Discharge ordered by . román 21:28 Discharged to home via wheelchair. em6 21:28 Condition: stable 21:28 Discharge instructions given to patient, family, Instructed on discharge instructions, follow up and referral plans. medication usage, wound care, Demonstrated understanding of instructions, follow-up care, medications, wound care, Prescriptions given X 4. 21:28 Patient left the ED. em6 Addendum: 05/05/2022 07:28 Addendum: Culture Results: Positive urine culture. No further action required. Bacteria e b sensitive to prescribed antibiotic. Signatures: Jaydon Land MD MD cha Moreno, Amanda am2 Yvonne Contreras Victoria, RN RN vg1 India Landa, RN RN tp1 Radha Brooke, RN RN em6
--- NOTE | 2022-05-01 20:59 | EDPHYS ---
Physician Documentation [facility] Name: Jessica Horowitz Age: 66 yrs Sex: Female : 1955 Arrival Date: 05/01/2022 Time: 18:49 Bed 26 Private MD: ED Physician Jaydon Land HPI: 05/01 19:49 This 66 yrs old Black Female presents to ER via Ambulatory with complaints of spider román bite. 19:49 The patient presents with an abrasion, an abscess, moderate-sized. The complaints román affect the lateral aspect of left calf. Context: The problem was sustained at an unknown site, resulted from an unknown cause. Onset: The symptoms/episode began/occurred 5 day(s) ago. Modifying factors: The symptoms are alleviated by elevating leg, the symptoms are aggravated by nothing. Associated signs and symptoms: The patient has no apparent associated signs or symptoms. Treatment prior to arrival includes: prescription medications, bactrim. Severity of symptoms: At their worst the symptoms were mild, moderate, in the emergency department the symptoms are unchanged. The patient has not experienced similar symptoms in the past. Historical: - Allergies: 19:10 PENICILLINS; vg1 - Home Meds: 19:10 Metformin Oral [Active]; vg1 - PMHx: 19:10 Diabetes mellitus; Arthritis; Dementia; Alzheimer's disease; vg1 - Immunization history:: Client reports receiving the 2nd dose of the Covid vaccine. - Social history:: Smoking status: Patient/guardian denies using tobacco, the patient reports quitting approximately 30 years ago. - Family history:: not pertinent. ROS: 19:49 Constitutional: Negative for fever, chills, and weight loss, Eyes: Negative for injury, román pain, redness, and discharge, ENT: Negative for injury, pain, and discharge, Neck: Negative for injury, pain, and swelling, Cardiovascular: Negative for chest pain, palpitations, and edema, Respiratory: Negative for shortness of breath, cough, wheezing, and pleuritic chest pain, Abdomen/GI: Negative for abdominal pain, nausea, vomiting, diarrhea, and constipation, Back: Negative for injury and pain, : Negative for injury, bleeding, discharge, and swelling, Skin: Negative for injury, rash, and discoloration, Neuro: Negative for headache, weakness, numbness, tingling, and seizure, Psych: Negative for depression, anxiety, suicide ideation, homicidal ideation, and hallucinations, Allergy/Immunology: Negative for hives, rash, and allergies, Endocrine: Negative for neck swelling, polydipsia, polyuria, polyphagia, and marked weight changes, Hematologic/Lymphatic: Negative for swollen nodes, abnormal bleeding, and unusual bruising. 19:49 MS/extremity: Positive for decreased range of motion, erythema, pain, swelling, tenderness, of the lateral aspect of left calf, Negative for Exam: 19:49 Constitutional: This is a well developed, well nourished patient who is awake, alert, román and in no acute distress. Head/Face: Normocephalic, atraumatic. Eyes: Pupils equal round and reactive to light, extra-ocular motions intact. Lids and lashes normal. Conjunctiva and sclera are non-icteric and not injected. Cornea within normal limits. Periorbital areas with no swelling, redness, or edema. ENT: Nares patent. No nasal discharge, no septal abnormalities noted. Tympanic membranes are normal and external auditory canals are clear. Oropharynx with no redness, swelling, or masses, exudates, or evidence of obstruction, uvula midline. Mucous membranes moist. Neck: Trachea midline, no thyromegaly or masses palpated, and no cervical lymphadenopathy. Supple, full range of motion without nuchal rigidity, or vertebral point tenderness. No Meningismus. Chest/axilla: Normal chest wall appearance and motion. Nontender with no deformity. No lesions are appreciated. Cardiovascular: Regular rate and rhythm with a normal S1 and S2. No gallops, murmurs, or rubs. Normal PMI, no JVD. No pulse deficits. Respiratory: Lungs have equal breath sounds bilaterally, clear to auscultation and percussion. No rales, rhonchi or wheezes noted. No increased work of breathing, no retractions or nasal flaring. Abdomen/GI: Soft, non-tender, with normal bowel sounds. No distension or tympany. No guarding or rebound. No evidence of tenderness throughout. Back: No spinal tenderness. No costovertebral tenderness. Full range of motion. Female : Normal external genitalia. Neuro: Awake and alert, GCS 15, oriented to person, place, time, and situation. Cranial nerves II-XII grossly intact. Motor strength 5/5 in all extremities. Sensory grossly intact. Cerebellar exam normal. Normal gait. Psych: Awake, alert, with orientation to person, place and time. Behavior, mood, and affect are within normal limits. 19:49 Skin: abscess, that is small, that is moderate sized, of the lateral aspect of left calf, cellulitis, that is minimal, induration, that is mild is noted. Vital Signs: 19:07 BP 121 / 64; Pulse 75; Resp 16; Temp 97.3; Pulse Ox 97% ; Weight 68.04 kg; Height 5 ft. vg1 3 in. (160.02 cm); Pain 10/10; 20:11 BP 119 / 59; Pulse 75; Resp 16; Pulse Ox 98% on R/A; tp1 21:14 BP 114 / 74; Pulse 72; Resp 18; Pulse Ox 100% on R/A; em6 19:07 Body Mass Index 26.57 (68.04 kg, 160.02 cm) vg1 Procedures: 19:49 I \T\ D: Incision and drainage was performed for an abscess of the left Prepped with [facility] Betadine, Anesthetized with 10 ml's 1% Lidocaine w/ Epi. Incised with #11 blade. Drained moderate amount Packed with iodoform gauze, Dressing: non-Adherent dressing, the patient tolerated the procedure well. MDM: 19:14 Patient medically screened. [facility] 19:49 Differential diagnosis: contusion, abrasion, tendonitis. Data reviewed: vital signs, [facility] nurses notes. Data interpreted: quality assurance monitor: not applicable for this patient encounter. rate is 75 beats/min, rhythm is regular, Pulse oximetry: on room air is 97 %. Counseling: I had a detailed discussion with the patient and/or guardian regarding: the historical points, exam findings, and any diagnostic results supporting the discharge/admit diagnosis, lab results. 05/01 19:39 Order name: Wound Culture [facility] 05/01 20:17 Order name: Glucose, Ancillary Testing EDNM 05/01 19:39 Order name: Blood Glucose Level; Complete Time: 20:08 [facility] 05/01 19:39 Order name: Dressing - Wound; Complete Time: 20:12 [facility] 05/01 19:39 Order name: Gloves, Sterile; Complete Time: 20:00 [facility] 05/01 19:39 Order name: Setup Suture Tray; Complete Time: 20:00 román Administered Medications: 19:46 Drug: Doxycycline 200 mg Route: PO; tp1 20:20 Follow up: Response: No adverse reaction em6 19:46 Drug: Bactrim (trimethoprim-sulfamethoxazole) (160 mg-800 mg (DS) 1 tablet Route: PO; tp1 20:20 Follow up: Response: No adverse reaction em6 20:45 Drug: Lidocaine-Epinephrine -1%: (1:100,000) 10 ml {Note: administered by dr land.} em6 Volume: 20 ml; Route: Infiltration; 21:15 Follow up: Response: No adverse reaction em6 21:07 Drug: Bactroban (mupirocin) Ointment 2 % 1 application Route: Topical; Site: affected em6 area; 21:28 Follow up: Response: No adverse reaction em6 Disposition Summary: 05/01/22 20:58 Discharge Ordered Location: Home román Problem: new román Symptoms: have improved román Condition: Stable román Diagnosis - Cutaneous abscess of other sites - left lower leg román - Cellulitis of left lower limb román Followup: román - With: Private Physician - When: 2 - 3 days - Reason: Recheck today's complaints, Continuance of care, Re-evaluation by your physician Followup: román - With: - When: 2 - 3 days - Reason: Recheck today's complaints, Re-evaluation by your physician Discharge Instructions: - Discharge Summary Sheet román - Skin Abscess román - Cellulitis, Adult román - Incision and Drainage román - Skin Abscess, [id number] román - Cellulitis, Adult, [id number] román - Incision and Drainage, Care After román Forms: - Medication Reconciliation Form [facility] - Thank You Letter [facility] - Antibiotic Education [facility] - Prescription Opioid Use [facility] Prescriptions: - Centany 2 % Topical ointment - apply 1 application by TOPICAL route 3 times per day; 30 gram; Refills: 0, [facility] Product Selection Permitted - Doxycycline Hyclate 100 mg Oral Tablet - take 1 tablet by ORAL route every 12 hours; 20 tablet; Refills: 0, Product [facility] Selection Permitted - Bactrim DS 800-160 mg Oral Tablet - take 1 tablet by ORAL route every 12 hours for 10 days; 20 tablet; Refills: 0, [facility] Product Selection Permitted - Tylenol-Codeine #3 300 mg-30 mg Oral - take 2 tablet by ORAL route every 6 hours; 16 tablet; Refills: 0, Product román Selection Permitted Signatures: Dispatcher [employer] Jaydon Montes De Oca MD MD cha Garcia, Victoria, RN RN vg1 India Landa RN RN tp1 Radha Brooke RN RN em6
[2022-05-01] MEDS ORDERED: MUPIROCIN 2% OINT 22GM TUBE TOP ONE (21:01)
[2022-05-01 22:53] VITALS: TEMP 97.3
[2022-05-01 22:55] VITALS: BP 114/74; O2SAT 100
== END 2022-05-01 21:28 | disposition home or self-care (01) ==
LOC: ER 18:48
PROC: 0H9LXZZ Drainage of Left Lower Leg Skin, External Approach (ICD-10-PCS; principal; 2022-05-01)
DX: L02.416 Cutaneous abscess of left lower limb (principal); L03.116 Cellulitis of left lower limb; E11.9 Type 2 diabetes mellitus without complications; G30.9 Alzheimer's disease, unspecified; F02.80 Dementia in other diseases classified elsewhere, unspecified severity, without behavioral disturbance, psychotic disturbance, mood disturbance, and anxiety; Z88.0 Allergy status to penicillin
CPT/HCPCS: 82947; 87070; 87077; 87186; 87205; 99283